=== PATIENT | female | born 1970 | race Caucasian/White ===

== ENCOUNTER 2018-04-24 06:42 | Outpatient (CLI) | payer BC ==
[~2018-04-24] VITALS: Ht 157.5 cm; Wt 55.3 kg
== END 2018-04-24 13:17 | disposition home or self-care (01) ==
LOC: PREOP 06:42
PROVIDERS: ATTEND Surgery
DX: Z01.818 Encounter for other preprocedural examination (principal)

== ENCOUNTER 2018-04-26 07:40 | Day surgery (SDC) | payer BC ==
[~2018-04-26] VITALS: Ht 157.5 cm; Wt 55.3 kg
[2018-04-26 08:00] VITALS: BP 111/43
[2018-04-26] MEDS ORDERED: ceFAZolin 2 GM IV Premixed 50 ML ONE (08:19)
[2018-04-26] MEDS ORDERED: LIDOCAINE/EPI 1%-1:200,000 (XYLOCAINE) 10 ML VIAL ONE (08:35)
[2018-04-26] MEDS ORDERED: 0.9% SODIUM CHLORIDE PF INJ 20 ML VIAL ONE (08:36)
[2018-04-26] MEDS ORDERED: fentaNYL INJECTION 100 MCG/2 ML AMP ONE (08:54)
[2018-04-26] MEDS ORDERED: MIDAZOLAM 2 MG/2 ML (VERSED) VIAL ONE (08:54)
[2018-04-26] MEDS ORDERED: PROPOFOL INJECTION 50 ML IV ONE (08:54)
--- NOTE | 2018-04-26 08:56 | Progress Note-Pre Operative ---
Pre-Operative Progress Note H&P Reviewed The H&P was reviewed, patient examined and no changes noted. Time Seen by Provider: 08:54 Date H&P Reviewed: Apr 26, 2018 Time H&P Reviewed: 08:55 Pre-Operative Diagnosis: Venous Insufficiency, Lung CA MATTI HUFF DO Apr 26, 2018 08:56
[2018-04-26] MEDS ORDERED: ceFAZolin 2 GM IV Premixed 50 ML IV ONE (09:00)
[2018-04-26] MEDS ORDERED: LACTATED RINGERS 1,000 ML IV PRN (09:01)
[2018-04-26] MEDS: HEParin (CENTRAL IV FLUSH) 500 UNIT/5 ML SYR ONE ×2 (09:22→09:26)
--- NOTE | 2018-04-26 09:40 | Progress Note-Post Operative ---
Post-Operative Progess Note Surgeon (s)/Gambling Cashier (s) Surgeon MATTI HUFF DO Gambling Cashier: none Pre-Operative Diagnosis Venous Insufficiency, Lung CA Post-Operative Diagnosis same Procedure & Operative Findings Date of Procedure 04/26/18 Procedure Performed/Findings Bayron-cath insertion, R ACW, R SC vein Anesthesia Type IV sedation by Anesthesia Estimated Blood Loss Estimated blood loss (mL): scant Specimens/Packing Specimens Removed none MATTI HUFF DO Apr 26, 2018 09:40
[2018-04-26] MEDS ORDERED: ACHD5005 PO (09:41)
--- NOTE | 2018-04-26 09:43 | Discharge Inst-Surgical ---
Discharge Inst-Surgical Depart Medication/Instructions New, Converted or Re-Newed RX: RX Given to Pt/Family Patient Instructions Follow up Appt: Make appointment for 1 week. Instructions: No lifting greater than 30 pounds. No strenuous activity. May shower in 24 hours, no tub bath or soaking. Use incentive spirometer at home as directed. No Smoking Skin/Wound Care: May remove bandages in am. You need to leave the Dermabond on over incision it will fall off on its own. Symptoms to Report: Appetite Changes, Extremity Discoloration, Numbness/Tingling, Swelling Increased , Bleeding Excessive, Eyesight Changes, Pain Increased, Urine Color Change, Constipation(Persistent), Fever over 101 degree F, Pain/Pressure in chest, Urinating Difficulty, Cough Up/Vomit Blood, Heart Beat Irreg/Pounding, Pain/ Pressure in jaw, Vaginal Bleeding Increase, Cramps in feet or legs, Lightheadedness, Pain/Pressure in shoulder, Diarrhea(Persistent), Memory Changes Suddenly, Questions/Concerns, Weight gain consecutive days, Dizziness/ Fainting, Nausea/Vomiting, Shortness of Breath, Weight gain over 2 pounds If questions or concerns contact your physician Or seek help at emergency department. Activity Activity as Tolerated: Yes Activity Instructions: Avoid Stress to Incision Driving Instructions: No Driving/Refer to (while on pain meds) Diet Discharge Diet: No Restrictions Diet After 24 Hours: Clear Liquid if Nauseous If Any Problems/Questions/Issu: Contact Your Physician, Go to Emergency Room Skin/Wound Care Infection Signs and Symptoms: Increased Redness, Foul Odor of Wound, Increased Drainage, Skin Itchy or Has a Rash, Increased Swelling, Temperature Above 101 F Bathing Instructions: Shower Ice Pack: Ice On and Off Site (as needed for pain) MATTI HUFF DO Apr 26, 2018 09:43
[2018-04-26] MEDS ORDERED: ONDANSETRON 4 MG/2 ML (SDV) Z0FRAN IVP PRN (10:00)
[2018-04-26] MEDS ORDERED: morphine INJ 10 MG/ML 1ML (SYR OR VIAL) IVP ONE (10:00)
--- NOTE | 2018-04-26 10:15 | Anesthesia-General Post-Op ---
MAC Patient Condition Mental Status/LOC: Same as Preop Cardiovascular: Satisfactory Nausea/Vomiting: Absent Respiratory: Satisfactory Pain: Controlled Complications: Absent Post Op Complications Complications None Follow Up Care/Instructions Patient Instructions None needed. Anesthesiology Discharge Order Discharge Order Patient is doing well, no complaints, stable vital signs, no apparent adverse anesthesia problems. No complications reported per nursing. OSMANI METCALF CRNA Apr 26, 2018 10:15
[2018-04-26 10:20] VITALS: BP 100/51
[2018-04-26 10:50] VITALS: BP 103/52
[2018-04-26 11:10] VITALS: BP 103/52
[2018-04-26 11:20] VITALS: BP 132/78
--- NOTE | 2018-04-26 12:17 | Diagnostic Imaging Report ---
EXAMINATION: Fluoroscopy. INDICATION: Port-A-Cath insertion. PROCEDURE: Fluoroscopic assistance was provided for Dr. Esposito during his right [place] catheter placement procedure. 5 seconds of fluoroscopy time was utilized. Two spot films of the right thorax were obtained. There is a Port-A-Cath in place with the tip overlying the midportion of the superior vena cava. IMPRESSION: Fluoroscopic assistance was provided for Dr. Esposito. Dictated by: Dictated on workstation # [id number]
--- OUTSIDE RECORDS SUMMARY | 2018-04-26 13:28 | XMS REPORT ---
Author JACOB Foley [facility] Address [address] [place], [place] [id number] Care Team Providers Care Rugby Union Footballer Name Role Phone JACOB ANDRES PCP JACOB ANDRES PreferredProvider Allergies and Adverse Reactions Name Reaction Notes No known drug allergy Plan of Treatment Not available. Medications Active Name Start Date Estimated Completion Date SIG Comments Levaquin 500 mg oral tablet 03/25/2018 04/04/2018 take 1 tablet (500 mg) by oral route once daily for 10 days Medrol (Lance) 4 mg oral tablets,dose pack 03/25/2018 03/30/2018 take as directed for 5 days Symbicort 160-4.5 mcg/actuation inhalation HFA aerosol inhaler 03/25/2018 inhale 2 puffs by inhalation route 2 times per day in the morning and evening promethazine-codeine 6.25-10 mg/5 mL oral syrup 03/25/2018 take 5 milliliters by oral route every 6 hours as needed, not to exceed 30 mL in 24 hours Name Start Date Expiration Date SIG Comments Zithromax Z-Lance 250 mg oral tablet 08/04/2016 08/09/2016 take 2 tablets (500 mg) by oral route once daily for 1 day then 1 tablet (250 mg) by oral route once daily for 4 days Synthroid 100 mcg oral tablet 12/19/2016 06/17/2017 take 1 tablet (100 mcg) by oral route once daily for 90 days Discontinued Name Start Date Discontinued Date SIG Comments promethazine-codeine 6.25-10 mg/5 mL oral syrup 08/04/2016 12/02/2016 take 5 milliliters by oral route every 6 hours as needed, not to exceed 30 mL in 24 hours Problem List Description Status Onset Smoker Active 08/04/2016 Hypothyroidism, acquired Active 08/04/2016 Vital Signs Date Time BP-Sys(mm[Hg] BP-Daysi(mm[Hg]) HR(bpm) RR(rpm) Temp WT HT HC BMI BSA BMI Percentile O2 Sat(%) 03/25/2018 8:42:00 AM 122 mmHg 86 mmHg 70 bpm 18 rpm 98.1 F 125 lbs 62 in 22.8626 kg/m 1.5749 m 97 % 11/30/2016 11:14:00 AM 128 mmHg 70 mmHg 60 bpm 16 rpm 98.4 F 128 lbs 62 in 23.41 kg/m2 1.59 m2 99 % 08/03/2016 1:43:00 PM 118 mmHg 70 mmHg 76 bpm 18 rpm 98 F 129.062 lbs 62 in 23.6056 kg/m 1.6003 m 97 % Social History Name Description Comments Tobacco Unknown if ever smoked Alcohol Unknown Uses seatbelts History of Procedures Date Ordered Description Order Status 08/03/2016 12:00 AM Decadron 8mg Injection Reviewed 08/03/2016 12:00 AM Depo-Medrol 80mg Injection Reviewed 08/03/2016 12:00 AM Rocephin 1 gram Injection Reviewed 08/03/2016 12:00 AM THER/PROPH/DIAG INJ SC/IM Reviewed Results Summary Not available. History Of Immunizations Not available. History of Past Illness Name Date of Onset Comments Smoker 08/04/2016 Hypothyroidism, acquired 08/04/2016 Acute bronchitis, unspecified organism Aug 03 2016 1:44PM Moderate Acute Cough Aug 03 2016 1:44PM Moderate Acute Chest congestion Aug 03 2016 1:44PM Chronic Smoker Aug 03 2016 1:44PM Hypothyroidism, Acquired Stable Aug 03 2016 1:44PM Abrasion, lower leg, anterior, right, initial encounter Nov 30 2016 11:15AM Acute bronchitis, unspecified organism Mar 25 2018 8:44AM Cough present for greater than 3 weeks Mar 25 2018 8:44AM Moderate Allergic dermatitis Unresponsive to treatment Mar 25 2018 8:44AM Smoker Mar 25 2018 8:44AM Hypothyroidism, unspecified type Mar 25 2018 8:44AM Payers Insurance Name Company Name Plan Name Plan Number Policy Number Policy Group Number [id number]A History of Encounters Visit Date Visit Type Provider 03/25/2018 Office visit JACOB SANTORO 11/30/2016 Office visit JACOB SANTORO 08/03/2016 Office visit JACOB SANTORO
--- OUTSIDE RECORDS SUMMARY | 2018-04-26 13:28 | XMS REPORT ---
Author JACOB Foley [facility] Address [address] [place], [place] [phone] Care Team Providers Care Beading Installer Name Role Phone JACOB ANDRES PCP JACOB ANDRES PreferredProvider Allergies and Adverse Reactions Name Reaction Notes No known drug allergy Plan of Treatment Planned Activity Comments Planned Date Planned Time Plan/Goal CT GUIDANCE FOR NEEDLE PLACE;BX,ASP,INJ 04/02/2018 12:00 AM Medications Active Name Start Date Estimated Completion Date SIG Comments Levaquin 500 mg oral tablet 03/25/2018 04/04/2018 take 1 tablet (500 mg) by oral route once daily for 10 days Symbicort 160-4.5 mcg/actuation inhalation HFA aerosol [...] oral route once daily for 90 days Medrol (Lance) 4 mg oral tablets,dose pack 03/25/2018 03/30/2018 take as directed for 5 days Discontinued Name Start Date Discontinued Date [...] HC BMI BSA BMI Percentile O2 Sat(%) 04/02/2018 10:50:00 AM 110 mmHg 70 mmHg 74 bpm 18 rpm 98.2 F 121 lbs 64 in 20.7694 kg/m 1.5743 m 97 % 03/25/2018 8:42:00 AM 122 mmHg 86 mmHg 70 bpm 18 rpm 98.1 F 125 lbs 62 in 22.86 kg/m2 1.57 m2 97 % 11/30/2016 11:14:00 AM 128 mmHg 70 mmHg 60 bpm 16 rpm 98.4 F 128 lbs 62 in 23.4113 kg/m 1.5937 m 99 % 08/03/2016 1:43:00 PM 118 mmHg 70 mmHg 76 bpm 18 rpm 98 F 129.062 lbs 62 in 23.6056 kg/m 1.60 m2 97 % Social History Name Description Comments Tobacco Unknown if ever smoked Alcohol Unknown Uses seatbelts History of Procedures Date Ordered Description Order Status 08/03/2016 12:00 AM Decadron 8mg Injection Reviewed 08/03/2016 12:00 AM Depo-Medrol 80mg Injection Reviewed 08/03/2016 12:00 AM Rocephin 1 gram Injection Reviewed 08/03/2016 12:00 AM THER/PROPH/DIAG INJ SC/IM Reviewed 03/26/2018 12:[address] THORAX W/DYE Returned Results Summary Not available. History Of Immunizations [...] Hypothyroidism, unspecified type Mar 25 2018 8:44AM Abnormal chest x-ray Mar 26 2018 9:24AM Lung mass Apr 02 2018 11:12AM Payers Insurance Name Company Name Plan Name Plan Number Policy Number Policy Group Number Start Date [facility] [id number] N/A History of Encounters Visit Date Visit Type Provider 04/02/2018 Office visit JACOB SANTORO 03/25/2018 Office visit JACOB SANTORO 11/30/2016 Office visit JACOB SANTORO 08/03/2016 Office visit JACOB SANTORO
--- OUTSIDE RECORDS SUMMARY | 2018-04-26 13:28 | XMS REPORT ---
Author Author JACOB ANDRES [facility] Address [address] [place], [place] [phone] Care Team Providers Care Call Center Representative Name Role Phone JACOB ANDRES PCP Unavailable Allergies and Adverse Reactions Not available. Plan of Treatment Not available. Medications Active Name Start Date Estimated Completion Date SIG Comments Zithromax Z-Lance 250 mg oral tablet 08/04/2016 08/09/2016 take 2 tablets (500 mg) by oral route once daily for 1 day then 1 tablet (250 mg) by oral route once daily for 4 days promethazine-codeine 6.25-10 mg/5 mL oral syrup 08/04/2016 take 5 milliliters by oral route every 6 hours as needed, not to exceed 30 mL in 24 hours Problem List Description Status Onset Smoker Active 08/04/2016 Vital Signs Date Time BP-Sys(mm[Hg] BP-Daysi(mm[Hg]) HR(bpm) RR(rpm) Temp WT HT HC BMI BSA BMI Percentile O2 Sat(%) 08/03/2016 1:43:00 PM 118 mmHg 70 mmHg 76 bpm 18 rpm 98 F 129.062 lbs 62 in 23.61 kg/m2 1.60 m2 97 % Social History Not available. History of Procedures Date Ordered Description Order Status 08/03/2016 12:00 AM Decadron 8mg Injection Reviewed 08/03/2016 12:00 AM Depo-Medrol 80mg Injection Reviewed 08/03/2016 12:00 AM Rocephin 1 gram Injection Reviewed 08/03/2016 12:00 AM THER/PROPH/DIAG INJ SC/IM Reviewed Results Summary Not available. History Of Immunizations Not available. History of Past Illness Name Date of Onset Comments Smoker 08/04/2016 Acute bronchitis, unspecified organism Aug 03 2016 1:44PM Moderate Acute Cough Aug 03 2016 1:44PM Moderate Acute Chest congestion Aug 03 2016 1:44PM Chronic Smoker Aug 03 2016 1:44PM Payers Insurance Name Company Name Plan Name Plan Number Policy Number Policy Group Number [id number] N/A History of Encounters Visit Date Visit Type Provider 08/03/2016 Office visit JACOB SANTORO
--- OUTSIDE RECORDS SUMMARY | 2018-04-26 13:28 | XMS REPORT ---
Author JACOB Foley [facility] Address [address] [place], [place] [phone] Care Team Providers Care Clockmaker Name Role Phone JACOB ANDRES PCP JACOB ANDRES PreferredProvider Allergies and Adverse Reactions Name Reaction Notes No known drug allergy Plan of Treatment Not available. Medications Active Name Start Date Estimated Completion Date SIG Comments Symbicort 160-4.5 mcg/actuation inhalation HFA aerosol inhaler 03/25/2018 inhale 2 puffs by inhalation route 2 times per day in the morning and evening promethazine-codeine 6.25-10 mg/5 mL oral syrup 03/25/2018 take 5 milliliters by oral route every 6 hours as needed, not to exceed 30 mL in 24 hours Chantix Starting Month Box 0.5 mg (11)- 1 mg (42) oral tablets,dose pack 2017 take as directed Name Start Date Expiration Date SIG Comments Zithromax Z-Lance 250 mg oral tablet 08/04/2016 08/09/2016 take 2 tablets (500 mg) by oral route once daily for 1 day then 1 tablet (250 mg) by oral route once daily for 4 days Synthroid 100 mcg oral tablet 12/19/2016 06/17/2017 take 1 tablet (100 mcg) by oral route once daily for 90 days Levaquin 500 mg oral tablet 03/25/2018 04/04/2018 [...] Smoker Active 08/04/2016 Hypothyroidism, acquired Active 08/04/2016 Non-small cell carcinoma of lung Active Vital Signs Date Time BP-Sys(mm[Hg] BP-Daysi(mm[Hg]) HR(bpm) [...] 03/26/2018 12:[address] THORAX W/DYE Returned 04/02/2018 12:[address] SCAN FOR NEEDLE BIOPSY Returned Results Summary Not available. History Of Immunizations Not available. History of Past Illness Name Date of Onset Comments Smoker 08/04/2016 Hypothyroidism, acquired 08/04/2016 Non-small cell carcinoma of lung Acute bronchitis, unspecified organism Aug 03 2016 [...] 9:24AM Lung mass Apr 02 2018 11:12AM Abnormal CT of the chest Apr 02 2018 10:53AM Cough in adult patient Apr 02 2018 10:53AM Smoker Apr 02 2018 10:53AM Payers Insurance Name Company Name Plan Name Plan Number Policy Number Policy Group Number [id number]/A History of Encounters Visit Date Visit Type Provider 04/02/2018 Office visit JACOB SANTORO 03/25/2018 Office visit JACOB SANTORO 11/30/2016 Office visit JACOB SANTORO 08/03/2016 Office visit JACOB SANTORO
--- OUTSIDE RECORDS SUMMARY | 2018-04-26 13:28 | XMS REPORT ---
Author JACOB Foley [facility] Address [address] [place], [place] [phone] Care Team Providers Care Diagnostic Technologist Name Role Phone JACOB ANDRES PCP JACOB ANDRES PreferredProvider Allergies and Adverse Reactions Name Reaction Notes No known drug allergy Plan of Treatment Planned Activity Comments Planned Date Planned Time Plan/Goal Computed tomography of chest with contrast 03/26/2018 12:00 AM Medications Active Name Start Date [...] Abnormal chest x-ray Mar 26 2018 9:24AM Payers Insurance Name Company Name Plan Name Plan Number Policy Number Policy Group Number Start Date [facility] [id number] N/A History of Encounters Visit Date Visit Type Provider 03/25/2018 Office visit JACOB SANTORO 11/30/2016 Office visit JACOB SANTORO 08/03/2016 Office visit JACOB SANTORO
--- OUTSIDE RECORDS SUMMARY | 2018-04-26 13:29 | XMS REPORT ---
Author Author JACOB ANDRES [facility] Address [address] [place], [place] [address] Care Team Providers Care Rolfer Name Role Phone JACOB ANDRES PCP Unavailable [...] Policy Number Policy Group Number [id number] N/A History of Encounters Visit Date Visit Type Provider 08/03/2016 Office visit JACOB SANTORO
--- OUTSIDE RECORDS SUMMARY | 2018-04-26 13:29 | XMS REPORT ---
Author JACOB Foley [facility] Address [address] [place], [place] [phone] Care Team Providers Care Scouts Name Role Phone JACOB ANDRES PCP Unavailable [...] to exceed 30 mL in 24 hours Synthroid 100 mcg oral tablet 08/03/2016 09/02/2016 take 1 tablet (100 mcg) by oral route once daily for 30 days Problem List Description Status Onset Smoker Active 08/04/2016 Hypothyroidism, Acquired Active 08/04/2016 Vital Signs Date Time BP-Sys(mm[Hg] [...] Date of Onset Comments Smoker 08/04/2016 Hypothyroidism, Acquired 08/04/2016 Acute bronchitis, unspecified organism Aug 03 2016 1:44PM Moderate Acute Cough Aug 03 2016 1:44PM Moderate Acute Chest congestion Aug 03 2016 1:44PM Chronic Smoker Aug 03 2016 1:44PM Hypothyroidism, Acquired Stable Aug 03 2016 1:44PM Payers Insurance Name Company Name Plan Name Plan Number Policy Number Policy Group Number Start Date [facility] [id number] N/A History of Encounters Visit Date Visit Type Provider 08/03/2016 Office visit JACOB SANTORO
--- OUTSIDE RECORDS SUMMARY | 2018-04-26 13:29 | XMS REPORT | Continuity of Care Document ---
Author Author [facility] Organization [facility] Address Unknown Phone Unavailable Allergies Active Description Code Type Severity Reaction Onset Reported/Identified Relationship to Patient Clinical Status Yes No Known Drug Allergies [id number] N/A N/A Yes No Known Drug Allergies [id number] Drug Allergy Unknown N/A 04/24/2018 Medications There is no data. Problems There is no data. Procedures There is no data. Results Test Result Range Urine beta human chorionic gonadotropin (hCG) measurement - 04/26/18 08:30 Urine beta human chorionic gonadotropin (hCG) measurement NEGATIVE NEGATIVE Encounters ACCT No. Visit Date/Time Discharge Status Pt. Type Provider Facility Loc./Unit Complaint [id number] 04/02/2018 11:32:16 04/02/2018 23:59:59 [facility] Outpatient JACOB ANDRES [id number] 03/25/2018 09:36:05 03/25/2018 23:59:59 [facility] Outpatient JACOB ANDRES [id number] 12/05/2016 07:57:01 12/05/2016 23:59:59 [facility] Outpatient JACOB ANDRES [id number] 11/30/2016 08:46:33 11/30/2016 23:59:59 [facility] Outpatient JACOB ANDRES [id number] 08/07/2016 12:36:45 08/07/2016 23:59:59 [facility] Outpatient JACOB ANDRES [id number] 04/15/2018 07:38:35 Document Registration [id number] 04/10/2018 08:37:23 Document Registration [id number] 04/09/2018 16:54:15 Document Registration [id number] 04/02/2018 10:59:13 Document Registration [id number] 03/26/2018 09:18:19 Document Registration [id number] 03/25/2018 09:50:50 Document Registration [id number] 04/24/2018 06:42:00 04/24/2018 13:17:00 DIS Outpatient MATTI HUFF DO [facility] PREOP PORT PLACEMENT [id number] 04/26/2018 09:30:00 PEN Preadmit MATTI HUFF DO [facility] LUNG CARCINOMA [id number] 04/24/2018 10:07:00 ACT Outpatient ANAND TRAYLOR, FLAVIA [facility] ONC
--- OUTSIDE RECORDS SUMMARY | 2018-04-26 13:29 | XMS REPORT ---
Author JACOB Foley [facility] Address [address] [place], [place] [address] Care Team Providers Care Finisher Cold Rolling Name Role Phone JACOB ANDRES PCP Unavailable JACOB ANDRES PreferredProvider Unavailable Allergies and Adverse Reactions Name Reaction Notes No known drug allergy Plan of Treatment Not available. Medications Name Start Date Expiration Date SIG Comments Zithromax Z-Lance 250 mg oral tablet 08/04/2016 08/09/2016 take 2 tablets (500 mg) by oral route once daily for 1 day then 1 tablet (250 mg) by oral route once daily for 4 days Synthroid 100 mcg oral tablet 08/03/2016 09/02/2016 take 1 tablet (100 mcg) by oral route once daily for 30 days Discontinued Name Start Date Discontinued Date [...] HC BMI BSA BMI Percentile O2 Sat(%) 11/30/2016 11:14:00 AM 128 mmHg 70 mmHg [...] AM THER/PROPH/DIAG INJ SC/IM Reviewed Results Summary Date and Description Results 12/06/2016 9:00 AM GLUCOSE 113.0 mg/dLSODIUM 139.0 mmol/LPOTASSIUM 3.70 mmol/ LCHLORIDE 106.0 mmol/LCO2 25.0 mmol/LBUN 9.0 mg/dLCREATININE 0.80 mg/dLSGOT/AST 17.0 IU/LSGPT/ALT 7.0 IU/LALK PHOS 45.0 IU/LTOTAL PROTEIN 7.60 g/dLALBUMIN 4.20 g/dLTOTAL BILI 0.30 mg/dLCALCIUM 9.70 mg/dLAGE 46 GFR NonAA 77 GFR AA 93 eGFR > 60 mL/min/1.73meGFR AA* >60 TRIGLYCERIDES 107.0 mg/dLCHOLESTEROL 238.0 mg/ dLHDL 40.0 mg/dLTOT CHOL/HDL 6.0 LDL (CALC) 177.0 mg/dLWBC 8.0 RBC 4.28 HGB 13.10 g/dLHCT 39.50 %MCV 92.0 fLMCH 30.60 pgMCHC 33.20 g/dLRDW SD 43 RDW CV 12.70 %MPV 8.20 fLPLT 378 NRBC# 0.00 NRBC% 0.0 FREE T4 1.22 TSH 1.020 uIU/mL History Of Immunizations Not available. History of [...] right, initial encounter Nov 30 2016 11:15AM Payers Insurance Name Company Name Plan Name Plan Number Policy Number Policy Group Number [id number] N/A History of Encounters Visit Date Visit Type Provider 11/30/2016 Office visit JACOB SANTORO 08/03/2016 Office visit JACOB SANTORO
--- OUTSIDE RECORDS SUMMARY | 2018-04-26 13:29 | XMS REPORT ---
Author JACOB Foley [facility] Address [address] [place], [place] [address] Care Team Providers Care African Studies Professor Name Role Phone JACOB ANDRES PCP Unavailable [...] Policy Number Policy Group Number [facility] [id number] N/A History of Encounters Visit Date Visit Type Provider 11/30/2016 Office visit JACOB SANTORO 08/03/2016 Office visit JACOB SANTORO
--- OUTSIDE RECORDS SUMMARY | 2018-04-26 13:29 | XMS REPORT ---
Author JACOB Foley [facility] Address [address] [place], [place] [address] Care Team Providers Care Laboratory Administrative Director Name Role Phone JACOB ANDRES PCP Unavailable [...] Policy Number Policy Group Number Start Date [facility] [id number] N/A History of Encounters Visit Date Visit Type Provider 11/30/2016 Office visit JACOB SANTORO 08/03/2016 Office visit JACOB SANTORO
--- NOTE | 2018-04-26 15:23 | OPERATIVE REPORT ---
DATE OF SERVICE: PREOPERATIVE DIAGNOSES: 1. Venous insufficiency. 2. Lung cancer. POSTOPERATIVE DIAGNOSES: 1. Venous insufficiency. 2. Lung cancer PROCEDURE: Insertion of Port-A-Cath, right anterior chest wall and right subclavian vein. SURGEON: Rhett Esposito DO. PACKAGE DYER: None. ANESTHESIA: IV sedation by the anesthesiologist. BLOOD LOSS: Scant. FLUIDS: Per anesthesia. SPECIMENS: None. POSTOPERATIVE CONDITION: Stable. INDICATION FOR PROCEDURE: The patient is a 47-year-old female, who unfortunately has lung cancer and needs a port for chemotherapy and long-term access. FINDINGS: The patient had a port placed in the right anterior chest wall and right subclavian vein without difficulty. PROCEDURE NOTE: After informed consent was obtained, the patient was brought to the operating room and placed on the table in supine position. She was sterilely prepped and draped in a normal fashion, slightly placed in reverse Trendelenburg and then using an 18-gauge finder needle advanced the needle under the clavicle, cannulated the subclavian vein on the second attempt. Good flash of blood, removed the syringe, placed a guidewire down the needle using a Seldinger technique, checked with fluoroscopy, it was in good position, removed this needle and then made a stab incision along the wire with a #11 blade. Then, used the #11 blade to make a small incision in the right anterior chest wall to place the port making the incision down through the skin into the subcutaneous tissue, then deepened down through the subcutaneous tissue with Bovie electrocautery controlling the bleeding and then also using the blunt dissection to create a pocket, sutured it with 3-0 Prolene suture down to the anterior chest wall and then over the guidewire placed the dilator using the Seldinger technique, it went in easily, checked with fluoroscopy and it was in good position, tunneled the catheter from the stab incision into the pocket created for the port and then removed the inner portion of the dilator sheath as well as the guidewire and then placed the catheter down the dilator sheath using the Seldinger technique, checked with fluoroscopy, it was in good position and then removed the inner guidewire for the catheter, cut the catheter and then attached it to the port and then attached the locking mechanism and then easily aspirated and flushed with normal saline and aspirated and flushed with heparin. This port was then sutured down to the chest wall with a 3-0 Prolene previously placed, checked with fluoroscopy. At the end of case, there were no kinks. Good port position and again easily able to flush. At this point, I then closed the incision on the anterior chest wall closing the subcutaneous tissue with 3-0 Vicryl single interrupted stitch. I then closed the skin with 4-0 undyed Monocryl with three interrupted subcuticular stitches and then closed the small stab incision with 3-0 undyed Monocryl subcuticular stitches. Area was cleaned and dried, Dermabond placed as well as Band-Aids and the patient was then transferred to the recovery room in stable condition. Sponge, instrument and needle count correct at the end of the case. Job ID: [id number] DocumentID: [id number] Dictated Date: 04/26/2018 11:35:00 Lime Vat Tender Date: 04/26/2018 15:23:08 Dictated By: DO CRYSTAL SANDERS
== END 2018-04-26 11:20 | disposition home or self-care (01) ==
LOC: SDC 07:40
PROVIDERS: ATTEND Surgery
DX: I87.2 Venous insufficiency (chronic) (peripheral) (principal); C34.90 Malignant neoplasm of unspecified part of unspecified bronchus or lung; F17.210 Nicotine dependence, cigarettes, uncomplicated
CPT/HCPCS: 84703; 87081

== ENCOUNTER → 2018-05-07 | Outpatient (CLI) | payer BC ==
[~2018-05-07] MED LIST: ACHD5005 PO
== END ==
LOC: LAB 14:24
PROVIDERS: ATTEND Surgery
DX: R30.0 Dysuria (principal)
CPT/HCPCS: 87077; 87088; 87186

== ENCOUNTER → 2018-07-17 | Outpatient (CLI) | payer BC ==
[~2018-07-17] MED LIST changes: +IOHEXOL 350 MG/ML 100 ML (OMNIPAQUE 350) VIAL IV ONE; +NS 100 ML (IVPB) BAG IV ONE; +RECEIVED CONTRAST (Hold Metformin) IV SCH
--- NOTE | 2018-07-17 12:04 | Diagnostic Imaging Report ---
PROCEDURE: CT chest with contrast only. TECHNIQUE: Multiple contiguous axial images were obtained through the chest after administration of intravenous contrast. INDICATION: Lung cancer. FINDINGS: The previous CT chest exam performed at [facility] on 03/27/2018 was reviewed. That study revealed a large 5.4 x 8.5 cm mediastinal mass on the right. On this exam, that mass is much smaller and now measures 2.3 x 3.0 cm. The previous study also identified aorticopulmonary adenopathy with two contiguous nodes. Those nodes had a conglomerate size of approximately 2.0 x 4.7 cm. On this exam, those nodes are again identified and now measure 1.9 x 4.1 cm. The prior study also identified a large pretracheal node measuring 2.3 x 3.3 cm. That node has also diminished in size and is now estimated to be 1.6 x 1.9 cm. There is no parenchymal lung mass identified. There is no sign of failure or pneumonia. There does appear to be some scar formation in the lingula. The heart size is within normal limits and stable when compared to the prior study. The aorta is not abnormally dilated, and there is no sign of a dissection. The pulmonary arteries were not fully opacified, but there is no definite defect to suggest a pulmonary embolus. The thyroid gland appears similar to the prior study. There is a small 3 mm low-density nodule in the right lobe. There is no obvious breast mass. The sections through the upper abdomen fail to show any sign of an acute abnormality. The bone windows are unremarkable for a fracture or for a destructive lesion. IMPRESSION: 1. The appearance of the chest has improved considerably since the prior exam as the bulky mass in the right superior mediastinum has decreased in size significantly. The aorticopulmonary window nodes and the pretracheal node also measure less than on the prior exam. 2. There is no parenchymal lung mass identified, and there is no acute cardiopulmonary abnormality evident. Dictated by: Dictated on workstation # [id number]
== END ==
LOC: RAD 10:38
PROVIDERS: ATTEND Internal Medicine Hematology & Oncology
DX: C34.90 Malignant neoplasm of unspecified part of unspecified bronchus or lung (principal)
CPT/HCPCS: 71260

== ENCOUNTER 2018-10-16 14:37 | Outpatient (RCR) | payer BC ==
[2018-07-24 13:32] LABS: BASOPHILS % (AUTO) 1 % (0-10); EOSINOPHILS # (AUTO) 0.1 10^3/uL (0.0-0.3); EOSINOPHILS % (AUTO) 1 % (0-10); HEMATOCRIT 35 % (35-52); HEMOGLOBIN 11.3 G/DL (11.5-16.0); LYMPHOCYTES % (AUTO) 15 % (12-44); MEAN CORPUSCULAR HEMOGLOBIN 31 PG (25-34); MEAN CORPUSCULAR HGB CONC 33 G/DL (32-36); MEAN CORPUSCULAR VOLUME 95 FL (80-99); MEAN PLATELET VOLUME 7.8 FL (7.4-10.4); MONOCYTES # (AUTO) 0.8 X 10^3 (0.0-1.0); MONOCYTES % (AUTO) 13 % (0-12); NEUTROPHILS # (AUTO) 4.4 X 10^3 (1.8-7.8); NEUTROPHILS % (AUTO) 71 % (42-75); PLATELET COUNT 376 10^3/uL (130-400); WHITE BLOOD COUNT 6.2 10^3/uL (4.3-11.0)
[2018-07-24 13:54] LABS: ALANINE AMINOTRANSFERASE < 6 U/L (0-55); ALKALINE PHOSPHATASE 50 U/L (40-136); BILIRUBIN,TOTAL 0.3 MG/DL (0.1-1.0); BUN/CREATININE RATIO 6; CALCIUM 9.6 MG/DL (8.5-10.1); CARBON DIOXIDE 26 MMOL/L (21-32); CHLORIDE 107 MMOL/L (98-107); CREATININE SERUM 0.67 MG/DL (0.60-1.30); GFR ESTIMATED > 60; GLUCOSE 144 MG/DL (70-105); POTASSIUM 3.7 MMOL/L (3.6-5.0); SODIUM 143 MMOL/L (135-145); TOTAL PROTEIN 7.2 GM/DL (6.4-8.2)
[2018-08-07 11:40] LABS: BASOPHILS % (AUTO) 1 % (0-10); EOSINOPHILS # (AUTO) 0.1 10^3/uL (0.0-0.3); EOSINOPHILS % (AUTO) 2 % (0-10); HEMATOCRIT 33 % (35-52); HEMOGLOBIN 10.8 G/DL (11.5-16.0); LYMPHOCYTES % (AUTO) 15 % (12-44); MEAN CORPUSCULAR HEMOGLOBIN 32 PG (25-34); MEAN CORPUSCULAR HGB CONC 33 G/DL (32-36); MEAN CORPUSCULAR VOLUME 95 FL (80-99); MONOCYTES # (AUTO) 0.6 X 10^3 (0.0-1.0); MONOCYTES % (AUTO) 10 % (0-12); NEUTROPHILS # (AUTO) 4.6 X 10^3 (1.8-7.8); NEUTROPHILS % (AUTO) 72 % (42-75); PLATELET COUNT 332 10^3/uL (130-400); RED CELL DISTRIBUTION WIDTH 13.9 % (10.0-14.5); WHITE BLOOD COUNT 6.4 10^3/uL (4.3-11.0)
[2018-08-07 12:01] LABS: ALANINE AMINOTRANSFERASE < 6 U/L (0-55); ALBUMIN 3.8 GM/DL (3.2-4.5); ALKALINE PHOSPHATASE 42 U/L (40-136); BILIRUBIN,TOTAL 0.3 MG/DL (0.1-1.0); BUN/CREATININE RATIO 11; CALCIUM 9.2 MG/DL (8.5-10.1); CARBON DIOXIDE 28 MMOL/L (21-32); CHLORIDE 106 MMOL/L (98-107); CREATININE SERUM 0.57 MG/DL (0.60-1.30); GFR ESTIMATED > 60; GLUCOSE 101 MG/DL (70-105); POTASSIUM 3.7 MMOL/L (3.6-5.0); SODIUM 140 MMOL/L (135-145); TOTAL PROTEIN 6.8 GM/DL (6.4-8.2)
[2018-08-21 13:12] LABS: BASOPHILS # (AUTO) 0.1 10^3/uL (0.0-0.1); BASOPHILS % (AUTO) 1 % (0-10); EOSINOPHILS # (AUTO) 0.1 10^3/uL (0.0-0.3); EOSINOPHILS % (AUTO) 1 % (0-10); HEMATOCRIT 34 % (35-52); HEMOGLOBIN 11.4 G/DL (11.5-16.0); LYMPHOCYTES % (AUTO) 15 % (12-44); MEAN CORPUSCULAR HEMOGLOBIN 32 PG (25-34); MEAN CORPUSCULAR HGB CONC 33 G/DL (32-36); MEAN CORPUSCULAR VOLUME 95 FL (80-99); MONOCYTES # (AUTO) 0.8 X 10^3 (0.0-1.0); MONOCYTES % (AUTO) 12 % (0-12); NEUTROPHILS # (AUTO) 4.6 X 10^3 (1.8-7.8); NEUTROPHILS % (AUTO) 71 % (42-75); PLATELET COUNT 297 10^3/uL (130-400); RED CELL DISTRIBUTION WIDTH 12.7 % (10.0-14.5); WHITE BLOOD COUNT 6.4 10^3/uL (4.3-11.0)
[2018-08-21 13:32] LABS: ALANINE AMINOTRANSFERASE < 6 U/L (0-55); ALBUMIN 4.1 GM/DL (3.2-4.5); ALKALINE PHOSPHATASE 46 U/L (40-136); BILIRUBIN,TOTAL 0.4 MG/DL (0.1-1.0); BUN/CREATININE RATIO 9; CALCIUM 9.6 MG/DL (8.5-10.1); CARBON DIOXIDE 28 MMOL/L (21-32); CHLORIDE 103 MMOL/L (98-107); CREATININE SERUM 0.65 MG/DL (0.60-1.30); GFR ESTIMATED > 60; GLUCOSE 161 MG/DL (70-105); SODIUM 139 MMOL/L (135-145)
[2018-09-18 13:28] LABS: BASOPHILS # (AUTO) 0.1 10^3/uL (0.0-0.1); BASOPHILS % (AUTO) 1 % (0-10); EOSINOPHILS # (AUTO) 0.1 10^3/uL (0.0-0.3); EOSINOPHILS % (AUTO) 2 % (0-10); HEMATOCRIT 35 % (35-52); HEMOGLOBIN 11.3 G/DL (11.5-16.0); LYMPHOCYTES # (AUTO) 1.1 X 10^3 (1.0-4.0); LYMPHOCYTES % (AUTO) 20 % (12-44); MEAN CORPUSCULAR HEMOGLOBIN 31 PG (25-34); MEAN CORPUSCULAR HGB CONC 33 G/DL (32-36); MEAN CORPUSCULAR VOLUME 94 FL (80-99); MEAN PLATELET VOLUME 7.8 FL (7.4-10.4); MONOCYTES # (AUTO) 0.6 X 10^3 (0.0-1.0); MONOCYTES % (AUTO) 11 % (0-12); NEUTROPHILS # (AUTO) 3.5 X 10^3 (1.8-7.8); NEUTROPHILS % (AUTO) 66 % (42-75); PLATELET COUNT 326 10^3/uL (130-400); WHITE BLOOD COUNT 5.3 10^3/uL (4.3-11.0)
[2018-09-18 13:54] LABS: ALANINE AMINOTRANSFERASE 7 U/L (0-55); ALBUMIN 4.2 GM/DL (3.2-4.5); ALKALINE PHOSPHATASE 45 U/L (40-136); BILIRUBIN,TOTAL 0.3 MG/DL (0.1-1.0); BUN/CREATININE RATIO 9; CALCIUM 9.8 MG/DL (8.5-10.1); CARBON DIOXIDE 28 MMOL/L (21-32); CHLORIDE 102 MMOL/L (98-107); CREATININE SERUM 0.64 MG/DL (0.60-1.30); GFR ESTIMATED > 60; GLUCOSE 133 MG/DL (70-105); SODIUM 138 MMOL/L (135-145); TOTAL PROTEIN 6.8 GM/DL (6.4-8.2)
[~2018-10-16] VITALS: Ht 157.5 cm; Wt 54.9 kg
[2018-10-16 13:00] LABS: BASOPHILS # (AUTO) 0.1 10^3/uL (0.0-0.1); BASOPHILS % (AUTO) 1 % (0-10); EOSINOPHILS # (AUTO) 0.1 10^3/uL (0.0-0.3); EOSINOPHILS % (AUTO) 2 % (0-10); HEMATOCRIT 37 % (35-52); HEMOGLOBIN 12.6 G/DL (11.5-16.0); LYMPHOCYTES # (AUTO) 1.1 X 10^3 (1.0-4.0); LYMPHOCYTES % (AUTO) 18 % (12-44); MEAN CORPUSCULAR HEMOGLOBIN 32 PG (25-34); MEAN CORPUSCULAR HGB CONC 34 G/DL (32-36); MEAN CORPUSCULAR VOLUME 93 FL (80-99); MEAN PLATELET VOLUME 7.8 FL (7.4-10.4); MONOCYTES # (AUTO) 0.5 X 10^3 (0.0-1.0); MONOCYTES % (AUTO) 8 % (0-12); NEUTROPHILS # (AUTO) 4.4 X 10^3 (1.8-7.8); NEUTROPHILS % (AUTO) 72 % (42-75); PLATELET COUNT 336 10^3/uL (130-400); RED CELL DISTRIBUTION WIDTH 12.9 % (10.0-14.5); WHITE BLOOD COUNT 6.1 10^3/uL (4.3-11.0)
[2018-10-16 13:21] LABS: ALANINE AMINOTRANSFERASE 6 U/L (0-55); ALBUMIN 4.3 GM/DL (3.2-4.5); ALKALINE PHOSPHATASE 62 U/L (40-136); BILIRUBIN,TOTAL 0.2 MG/DL (0.1-1.0); BUN/CREATININE RATIO 11; CALCIUM 9.8 MG/DL (8.5-10.1); CARBON DIOXIDE 26 MMOL/L (21-32); CHLORIDE 102 MMOL/L (98-107); CREATININE SERUM 0.75 MG/DL (0.60-1.30); GFR ESTIMATED > 60; GLUCOSE 93 MG/DL (70-105); POTASSIUM 3.8 MMOL/L (3.6-5.0); SODIUM 139 MMOL/L (135-145); TOTAL PROTEIN 7.3 GM/DL (6.4-8.2)
[~2018-10-16 14:37] MED LIST changes: +DURVALUMAB 500 MG in NS (IVPB) CANCER CENTER 100 ML IV SCH; -IOHEXOL 350 MG/ML 100 ML (OMNIPAQUE 350) VIAL IV ONE; -NS 100 ML (IVPB) BAG IV ONE; +NS IV 1000 ML (CANCER CTR) IV SCH; +NS IV 500 ML (CANCER CENTER) 500 ML ONE; -RECEIVED CONTRAST (Hold Metformin) IV SCH
== END 2018-10-22 | disposition home or self-care (01) ==
LOC: ONC 14:37
PROVIDERS: ATTEND Internal Medicine Hematology & Oncology
DX: Z51.11 Encounter for antineoplastic chemotherapy (principal); C34.11 Malignant neoplasm of upper lobe, right bronchus or lung; C77.1 Secondary and unspecified malignant neoplasm of intrathoracic lymph nodes; E03.9 Hypothyroidism, unspecified; F17.210 Nicotine dependence, cigarettes, uncomplicated; Z79.899 Other long term (current) drug therapy
CPT/HCPCS: 36415; 36591; 80053; 84443; 85025; 96413

== ENCOUNTER → 2018-12-25 | Outpatient (CLI) | payer BC ==
[~2018-12-25] MED LIST changes: +BARIUM SUSPENSION 2.1% (VANILLA SILQ) 450 ML PO ONE; -DURVALUMAB 500 MG in NS (IVPB) CANCER CENTER 100 ML IV SCH; +HOLD METFORMIN - RECEIVED CONTRAST 20 ML VIAL IV SCH; +IOHEXOL 350 MG/ML 100 ML (OMNIPAQUE 350) VIAL IV ONE; +NS 100 ML (IVPB) BAG IV ONE; -NS IV 1000 ML (CANCER CTR) IV SCH; -NS IV 500 ML (CANCER CENTER) 500 ML ONE
--- NOTE | 2018-12-25 11:54 | Diagnostic Imaging Report ---
PROCEDURE: CT chest, abdomen, and pelvis with contrast. TECHNIQUE: Multiple contiguous axial images were obtained through the chest, abdomen, and pelvis after the administration of intravenous contrast. Auto Exposure Controls were utilized during the CT exam to meet ALARA standards for radiation dose reduction. INDICATION: Lung cancer. The previous CT chest exam performed on 07/17/2018 noted a 2.3 x 3.0 cm mass in the right suprahilar region. That mass has decreased in size and now measures 1.3 x 2.2 cm. The prior study also identified bulky adenopathy in the left aorticopulmonary window. There are 2 contiguous nodes with a conglomerate size of 2.0 x 4.1 cm. On this study there is only a small 0.5 x 1.0 cm lindsey density in this area. The 1.6 x 1.9 cm pretracheal node noted previously has also decreased in size and now measures 1.0 x 1.3 cm However, in the interval since the prior study, a 3.2 x 3.6 cm mass with 3 areas of cavitation has developed along the posterior aspect of the right upper lobe. This line should be considered neoplastic until proven otherwise. The 4.3 mm parenchymal nodule in the right apex seen previously is also slightly larger and is now estimated be 4.8 mm. No other parenchymal lung mass is identified. The heart size is stable when compared to the prior exam. The aorta and the pulmonary arteries are unchanged when compare to the previous study. There is no sign of failure, pneumonia or pleural effusion to indicate an acute abnormality. The thyroid gland is unremarkable. There is no obvious breast mass. The right-sided Port-A-Cath remains in good position with the tip near the cavoatrial junction. The sections to the abdomen and pelvis shows the liver is homogeneous and not enlarged. The spleen, pancreas, adrenals, kidneys, gallbladder, aorta and inferior vena cava are unremarkable for an acute abnormality. The stomach is partially filled with oral contrast and gas and difficult to assess. There is no pelvic mass or free fluid collection evident. The uterus and urinary bladder are grossly unremarkable. The cecum extends low into the pelvis on the right and the appendix is difficult to visualize. There is a small tubular gas-filled structure low in the pelvis just to the left of midline. This may resent the appendix. There is diverticulosis of the sigmoid and descending colon but there is no sign of acute diverticulitis. The bone windows show no evidence for fracture or for destructive lesion. IMPRESSION: 1. There are mixed results. The mass in the right suprahilar region has diminished in size and the bulky adenopathy in the aorticopulmonary window has essentially resolved. However a new mass with three areas of cavitation has developed on the posterior aspect of the right upper lung. This finding should be considered neoplastic until proven otherwise. 2. There is no other evidence for neoplastic disease. 3. There is no acute abnormality of the chest, abdomen or pelvis. Dictated by: Dictated on workstation # [id number]
== END ==
LOC: RAD 09:49
PROVIDERS: ATTEND Internal Medicine Hematology & Oncology
DX: C34.90 Malignant neoplasm of unspecified part of unspecified bronchus or lung (principal); Z95.828 Presence of other vascular implants and grafts
CPT/HCPCS: 71260; 74177

== ENCOUNTER → 2018-12-31 | Outpatient (CLI) | payer BC ==
[~2018-12-31] MED LIST changes: -BARIUM SUSPENSION 2.1% (VANILLA SILQ) 450 ML PO ONE; -HOLD METFORMIN - RECEIVED CONTRAST 20 ML VIAL IV SCH; -IOHEXOL 350 MG/ML 100 ML (OMNIPAQUE 350) VIAL IV ONE; -NS 100 ML (IVPB) BAG IV ONE
[2018-12-31 11:05] LABS: BASOPHILS # (AUTO) 0.1 10^3/uL (0.0-0.1); BASOPHILS % (AUTO) 2 % (0-10); EOSINOPHILS # (AUTO) 0.1 10^3/uL (0.0-0.3); EOSINOPHILS % (AUTO) 2 % (0-10); HEMATOCRIT 36 % (35-52); HEMOGLOBIN 11.9 G/DL (11.5-16.0); LYMPHOCYTES # (AUTO) 1.1 X 10^3 (1.0-4.0); LYMPHOCYTES % (AUTO) 19 % (12-44); MEAN CORPUSCULAR HEMOGLOBIN 31 PG (25-34); MEAN CORPUSCULAR HGB CONC 33 G/DL (32-36); MEAN CORPUSCULAR VOLUME 94 FL (80-99); MEAN PLATELET VOLUME 7.8 FL (7.4-10.4); MONOCYTES # (AUTO) 0.7 X 10^3 (0.0-1.0); MONOCYTES % (AUTO) 11 % (0-12); NEUTROPHILS % (AUTO) 66 % (42-75); PLATELET COUNT 343 10^3/uL (130-400); RED CELL DISTRIBUTION WIDTH 14.9 % (10.0-14.5)
[2018-12-31 11:19] LABS: INR 0.9 (0.8-1.4)
== END ==
LOC: LAB 10:47
PROVIDERS: ATTEND Nurse Practitioner Family
DX: C34.11 Malignant neoplasm of upper lobe, right bronchus or lung (principal); R91.8 Other nonspecific abnormal finding of lung field; R05 Cough; R06.89 Other abnormalities of breathing; J30.9 Allergic rhinitis, unspecified; R06.00 Dyspnea, unspecified; Z72.0 Tobacco use
CPT/HCPCS: 36415; 85025; 85610; 85730

== ENCOUNTER 2019-01-01 06:47 | Day surgery (SDC) | payer BC ==
[~2019-01-01] VITALS: Ht 157.5 cm; Wt 55.3 kg
[2019-01-01] MEDS ORDERED: LACTATED RINGERS 1,000 ML IV ONE (06:48)
[2019-01-01] MEDS ORDERED: LIDOCAINE PF 2% 5 ML (XYLOCAINE) VIAL INJ ONE (06:48)
[2019-01-01] MEDS ORDERED: LIDOCAINE PF 1% 2 ML AMP IJ ONE (06:48)
--- OUTSIDE RECORDS SUMMARY | 2019-01-01 06:54 | XMS REPORT ---
Author JACOB Foley [facility] Address [address] [place], [place] [id number] Care Team Providers Care Surg Physician Asst Name Role Phone JACOB ANDRES PCP JACOB ANDRES PreferredProvider Allergies and Adverse Reactions Name Reaction Notes No known drug allergy Plan of Treatment Planned Activity Comments Planned Date Planned Time Plan/Goal Abdomen 2View Decub/Upright- Main 11/25/2018 12:00 AM Medications Active Name Start Date Estimated Completion Date SIG Comments Symbicort 160-4.5 mcg/actuation inhalation HFA aerosol inhaler 03/25/2018 inhale 2 puffs by inhalation route 2 times per day in the morning and evening Chantix Starting Month Box 0.5 mg (11)- 1 mg (42) oral tablets,dose pack 04/04/2018 take as directed omeprazole 40 mg oral capsule,delayed release(DR/EC) 07/25/2018 take 1 capsule (40 mg) by oral route once daily before a meal promethazine-codeine 6.25-10 mg/5 mL oral syrup 10/29/2018 take 5 milliliters by oral route every [...] 03/30/2018 take as directed for 5 days Levaquin 500 mg oral tablet 06/13/2018 06/23/2018 take 1 tablet (500 mg) by oral route once daily for 10 days doxycycline hyclate 100 mg oral capsule 07/12/2018 08/26/2018 take 1 capsule (100 mg) by oral route 2 times per day for 15 days Discontinued Name Start Date Discontinued Date [...] HC BMI BSA BMI Percentile O2 Sat(%) 07/12/2018 8:46:00 AM 110 mmHg 70 mmHg 80 bpm 18 rpm 98.2 F 130 lbs 63 in 23.0282 kg/m 1.619 m 96 % 06/13/2018 8:37:00 AM 108 mmHg 70 mmHg 117 bpm 20 rpm 98.2 F 128 lbs 63 in 22.67 kg/m2 1.61 m2 98 % 04/02/2018 10:50:00 AM 110 mmHg 70 mmHg 74 bpm 18 rpm 98.2 F 121 lbs 64 in 20.77 kg/m2 1.57 m2 97 % 03/25/2018 8:42:00 AM 122 mmHg [...] AM CT SCAN FOR NEEDLE BIOPSY Returned 06/13/2018 12:00 AM THER/PROPH/DIAG INJ SC/IM Reviewed 06/13/2018 12:00 AM Decadron 8mg Injection Reviewed 07/12/2018 12:00 AM THER/PROPH/DIAG INJ SC/IM Reviewed 07/12/2018 12:00 AM Decadron 8mg Injection Reviewed Results Summary Not available. History Of [...] 2018 10:53AM Smoker Apr 02 2018 10:53AM Acute bronchitis, unspecified organism Jun 13 2018 8:39AM Cough present for greater than 3 weeks Jun 13 2018 8:39AM Moderate Allergic dermatitis Unresponsive to treatment Jun 13 2018 8:39AM Smoker Jun 13 2018 8:39AM Non-small cell carcinoma of lung Jun 13 2018 8:39AM Cough Jul 12 2018 9:21AM Purulent postnasal drainage Jul 12 2018 9:21AM Chest congestion Jul 12 2018 9:21AM Upper respiratory tract infection, unspecified type Jul 12 2018 9:21AM Sinus pressure Jul 12 2018 9:21AM Abdominal pain Nov 25 2018 7:41AM Payers Insurance Name Company Name Plan Name Plan Number Policy Number Policy Group [id number]A History of Encounters Visit Date Visit Type Provider 07/12/2018 Office visit JACOB SANTORO 06/13/2018 Office visit JACOB SANTORO 04/02/2018 Office visit JACOB SANTORO 03/25/2018 Office visit JACOB SANTORO 11/30/2016 Office visit JACOB SANTORO 08/03/2016 Office visit JACOB SANTORO
--- OUTSIDE RECORDS SUMMARY | 2019-01-01 06:54 | XMS REPORT ---
Author JACOB Foley [facility] Address [address] [place], [place] [id number] Care Team Providers Care Upper Extremity Surgeon Name Role Phone JACOB ANDRES PCP JACOB [...] oral tablets,dose pack 04/04/2018 take as directed Levaquin 500 mg oral tablet 06/13/2018 06/23/2018 take 1 tablet (500 mg) by oral route once daily for 10 days promethazine-codeine 6.25-10 mg/5 mL oral syrup 06/13/2018 take 5 milliliters by oral route every [...] HC BMI BSA BMI Percentile O2 Sat(%) 06/13/2018 8:37:00 AM 108 mmHg 70 mmHg 117 bpm 20 rpm 98.2 F 128 lbs 63 in 22.6739 kg/m 1.6065 m 98 % 04/02/2018 10:50:00 AM 110 mmHg [...] 06/13/2018 12:00 AM Decadron 8mg Injection Reviewed Results [...] carcinoma of lung Jun 13 2018 8:39AM Payers Insurance Name Company Name Plan Name Plan Number Policy Number Policy Group Number Start Date [facility] [id number] N/A History of Encounters Visit Date Visit Type Provider 06/13/2018 Office visit JACOB SANTORO 04/02/2018 Office visit JACOB SANTORO 03/25/2018 Office visit JACOB SANTORO 11/30/2016 Office visit JACOB SANTORO 08/03/2016 Office visit JACOB SANTORO
--- OUTSIDE RECORDS SUMMARY | 2019-01-01 06:54 | XMS REPORT ---
Author JACOB Foley [facility] Address [address] [place], [place] [id number] Care Team Providers Care Crm Architect Name Role Phone JACOB ANDRES PCP JACOB [...] oral tablets,dose pack 04/04/2018 take as directed promethazine-codeine 6.25-10 mg/5 mL oral syrup 06/13/2018 take 5 milliliters by oral route every 6 hours as needed, not to exceed 30 mL in 24 hours doxycycline hyclate 100 mg oral capsule 07/12/2018 08/26/2018 take 1 capsule (100 mg) by oral route 2 times per day for 15 days Name Start Date Expiration Date SIG Comments [...] oral route once daily for 10 days Discontinued Name Start Date Discontinued Date [...] 9:21AM Sinus pressure Jul 12 2018 9:21AM Payers Insurance Name Company Name Plan Name Plan Number Policy Number Policy Group Number Start Date [facility] [id number] N/A History of Encounters Visit Date Visit Type Provider 07/12/2018 Office visit JACOB SANTORO 06/13/2018 Office visit JACOB SANTORO 04/02/2018 Office visit JACOB SANTORO 03/25/2018 Office visit JACOB SANTORO 11/30/2016 Office visit JACOB SANTORO 08/03/2016 Office visit JACOB SANTORO
--- OUTSIDE RECORDS SUMMARY | 2019-01-01 06:55 | XMS REPORT | Continuity of Care Document ---
Author Organization Unknown Address Unknown Allergies Active Description Code Type Severity Reaction Onset Reported/Identified Relationship to Patient Clinical Status Yes No Known Drug Allergies [id number] Drug Allergy Unknown N/A 04/24/2018 Medications There is no data. Problems Date Dx Coded Attending Type Code Diagnosis Diagnosed By 04/24/2018 MATTI HUFF DO, Ot Z01.818 ENCOUNTER FOR OTHER PREPROCEDURAL EXAMIN 04/25/2018 MATTI HUFF DO Ot Z01.818 ENCOUNTER FOR OTHER PREPROCEDURAL EXAMIN 04/26/2018 FLAVIA MICHEL MD Ot C34.11 MALIGNANT NEOPLASM OF UPPER LOBE, RIGHT 04/26/2018 FLAVIA MICHEL MD Ot C77.1 SECONDARY AND UNSP MALIGNANT NEOPLASM OF 04/26/2018 FLAVIA MICHEL MD Ot E03.9 HYPOTHYROIDISM, UNSPECIFIED 04/26/2018 FLAVIA MICHEL MD Ot F17.210 NICOTINE DEPENDENCE, CIGARETTES, UNCOMPL 04/26/2018 CONSTANTINE HUFF DOIC B Ot C34.90 MALIGNANT NEOPLASM OF UNSP PART OF UNSP 04/26/2018 DELFAISAL DO MATTI B Ot F17.210 NICOTINE DEPENDENCE, CIGARETTES, UNCOMPL 04/26/2018 CONSTANTINE HUFF DOIC B Ot I87.2 VENOUS INSUFFICIENCY (CHRONIC) (PERIPHER 04/30/2018 MATTI HUFF DO B Ot C34.90 MALIGNANT NEOPLASM OF UNSP PART OF UNSP 04/30/2018 DELCONSTANTINE MALONE DOIC B Ot F17.210 NICOTINE DEPENDENCE, CIGARETTES, UNCOMPL 04/30/2018 CONSTANTINE HUFF DOIC B Ot I87.2 VENOUS INSUFFICIENCY (CHRONIC) (PERIPHER 05/01/2018 FLAVIA MICHEL MD Ot C34.11 MALIGNANT NEOPLASM OF UPPER LOBE, RIGHT 05/01/2018 FLAVIA MICHEL MD Ot C77.1 SECONDARY AND UNSP MALIGNANT NEOPLASM OF 05/01/2018 FLAVIA MICHEL MD Ot E03.9 HYPOTHYROIDISM, UNSPECIFIED 05/01/2018 FLAVIA MICHEL MD Ot F17.210 NICOTINE DEPENDENCE, CIGARETTES, UNCOMPL 05/07/2018 FLAVIA MICHEL MD Ot C34.11 MALIGNANT NEOPLASM OF UPPER LOBE, RIGHT 05/07/2018 FLAVIA MICHEL MD Ot C77.1 SECONDARY AND UNSP MALIGNANT NEOPLASM OF 05/07/2018 FLAVIA MICHEL MD Ot E03.9 HYPOTHYROIDISM, UNSPECIFIED 05/07/2018 FLAVIA MICHEL MD Ot F17.210 NICOTINE DEPENDENCE, CIGARETTES, UNCOMPL 05/09/2018 DELMAN DO, MATTI B Ot R30.0 DYSURIA 05/17/2018 DELMAN DO, MATTI B Ot C34.91 MALIGNANT NEOPLASM OF UNSP PART OF RIGHT 05/17/2018 DELMAN DO, MATTI B Ot F17.210 NICOTINE DEPENDENCE, CIGARETTES, UNCOMPL 05/17/2018 DELMAN DO, MATTI B Ot I87.2 VENOUS INSUFFICIENCY (CHRONIC) (PERIPHER 05/20/2018 DELMAN DO, MATTI B Ot R30.0 DYSURIA 05/29/2018 FLAVIA MICHEL MD Ot C34.11 MALIGNANT NEOPLASM OF UPPER LOBE, RIGHT 05/29/2018 FLAVIA MICHEL MD Ot C77.1 SECONDARY AND UNSP MALIGNANT NEOPLASM OF 05/29/2018 FLAVIA MICHEL MD Ot E03.9 HYPOTHYROIDISM, UNSPECIFIED 05/29/2018 FLAVIA MICHEL MD Ot F17.210 NICOTINE DEPENDENCE, CIGARETTES, UNCOMPL 07/18/2018 FLAVIA MICHEL MD Ot C34.11 MALIGNANT NEOPLASM OF UPPER LOBE, RIGHT 07/18/2018 FLAVIA MICHEL MD Ot C77.1 SECONDARY AND UNSP MALIGNANT NEOPLASM OF 07/18/2018 FLAVIA MICHEL MD Ot E03.9 HYPOTHYROIDISM, UNSPECIFIED 07/18/2018 FLAVIA MICHEL MD Ot F17.210 NICOTINE DEPENDENCE, CIGARETTES, UNCOMPL 07/22/2018 FLAVIA MICHEL MD Ot C34.11 MALIGNANT NEOPLASM OF UPPER LOBE, RIGHT 07/22/2018 FLAVIA MICHEL MD Ot C77.1 SECONDARY AND UNSP MALIGNANT NEOPLASM OF 07/22/2018 FLAVIA MICHEL MD Ot E03.9 HYPOTHYROIDISM, UNSPECIFIED 07/22/2018 FLAVIA MICHEL MD Ot F17.210 NICOTINE DEPENDENCE, CIGARETTES, UNCOMPL 07/22/2018 FLAVIA MICHEL MD Ot Z51.0 ENCOUNTER FOR ANTINEOPLASTIC RADIATION T 07/22/2018 FLAVIA MICHEL MD Ot Z51.11 ENCOUNTER FOR ANTINEOPLASTIC CHEMOTHERAP 07/22/2018 FLAVIA MICHEL MD Ot C34.11 MALIGNANT NEOPLASM OF UPPER LOBE, RIGHT 07/22/2018 FLAVIA MICHEL MD Ot C77.1 SECONDARY AND UNSP MALIGNANT NEOPLASM OF 07/22/2018 FLAVIA MICHEL MD Ot E03.9 HYPOTHYROIDISM, UNSPECIFIED 07/22/2018 FLAVIA MICHEL MD Ot F17.210 NICOTINE DEPENDENCE, CIGARETTES, UNCOMPL 07/22/2018 FLAVIA MICHEL MD Ot Z51.0 ENCOUNTER FOR ANTINEOPLASTIC RADIATION T 07/22/2018 FLAVIA MICHEL MD Ot Z51.11 ENCOUNTER FOR ANTINEOPLASTIC CHEMOTHERAP 07/24/2018 FLAVIA MICHEL MD Ot C34.11 MALIGNANT NEOPLASM OF UPPER LOBE, RIGHT 07/24/2018 FLAVIA MICHEL MD Ot C77.1 SECONDARY AND UNSP MALIGNANT NEOPLASM OF 07/24/2018 FLAVIA MICHEL MD Ot E03.9 HYPOTHYROIDISM, UNSPECIFIED 07/24/2018 FLAVIA MICHEL MD Ot F17.210 NICOTINE DEPENDENCE, CIGARETTES, UNCOMPL 07/26/2018 FLAVIA MICHEL MD Ot C34.11 MALIGNANT NEOPLASM OF UPPER LOBE, RIGHT 07/26/2018 FLAVIA MICHEL MD Ot C77.1 SECONDARY AND UNSP MALIGNANT NEOPLASM OF 07/26/2018 FLAVIA MICHEL MD Ot E03.9 HYPOTHYROIDISM, UNSPECIFIED 07/26/2018 FLAVIA MICHEL MD Ot F17.210 NICOTINE DEPENDENCE, CIGARETTES, UNCOMPL 07/29/2018 FLAVIA MICHEL MD Ot C34.11 MALIGNANT NEOPLASM OF UPPER LOBE, RIGHT 07/29/2018 FLAVIA MICHEL MD Ot C77.1 SECONDARY AND UNSP MALIGNANT NEOPLASM OF 07/29/2018 FLAVIA MICHEL MD Ot E03.9 HYPOTHYROIDISM, UNSPECIFIED 07/29/2018 FLAVIA MICHEL MD Ot F17.210 NICOTINE DEPENDENCE, CIGARETTES, UNCOMPL 08/01/2018 FLAVIA MICHEL MD Ot C34.11 MALIGNANT NEOPLASM OF UPPER LOBE, RIGHT 08/01/2018 FLAVIA MICHEL MD Ot C77.1 SECONDARY AND UNSP MALIGNANT NEOPLASM OF 08/01/2018 FLAVIA MICHEL MD Ot E03.9 HYPOTHYROIDISM, UNSPECIFIED 08/01/2018 FLAVIA MICHEL MD Ot F17.210 NICOTINE DEPENDENCE, CIGARETTES, UNCOMPL 08/27/2018 FLAVIA MICHEL MD Ot R22.2 LOCALIZED SWELLING, MASS AND LUMP, TRUNK 08/27/2018 FLAVIA MICHEL MD Ot R22.2 LOCALIZED SWELLING, MASS AND LUMP, TRUNK 08/28/2018 FLAVIA MICHEL MD Ot C34.11 MALIGNANT NEOPLASM OF UPPER LOBE, RIGHT 08/28/2018 FLAVIA MICHEL MD Ot C77.1 SECONDARY AND UNSP MALIGNANT NEOPLASM OF 08/28/2018 FLAVIA MICHEL MD Ot E03.9 HYPOTHYROIDISM, UNSPECIFIED 08/28/2018 FLAVIA MICHEL MD Ot F17.210 NICOTINE DEPENDENCE, CIGARETTES, UNCOMPL 10/16/2018 FLAVIA MICHEL MD Ot C34.11 MALIGNANT NEOPLASM OF UPPER LOBE, RIGHT 10/16/2018 FLAVIA MICHEL MD Ot C77.1 SECONDARY AND UNSP MALIGNANT NEOPLASM OF 10/16/2018 FLAVIA MICHEL MD Ot E03.9 HYPOTHYROIDISM, UNSPECIFIED 10/16/2018 FLAVIA MICHEL MD Ot F17.210 NICOTINE DEPENDENCE, CIGARETTES, UNCOMPL 10/22/2018 FLAVIA MICHEL MD Ot C34.11 MALIGNANT NEOPLASM OF UPPER LOBE, RIGHT 10/22/2018 FLAVIA MICHEL MD Ot C77.1 SECONDARY AND UNSP MALIGNANT NEOPLASM OF 10/22/2018 FLAVIA MICHEL MD Ot E03.9 HYPOTHYROIDISM, UNSPECIFIED 10/22/2018 FLAVIA MICHEL MD Ot F17.210 NICOTINE DEPENDENCE, CIGARETTES, UNCOMPL 10/24/2018 FLAVIA MICHEL MD Ot C34.11 MALIGNANT NEOPLASM OF UPPER LOBE, RIGHT 10/24/2018 FLAVIA MICHEL MD Ot C77.1 SECONDARY AND UNSP MALIGNANT NEOPLASM OF 10/24/2018 FLAVIA MICHEL MD Ot E03.9 HYPOTHYROIDISM, UNSPECIFIED 10/24/2018 FLAVIA MICHEL MD Ot F17.210 NICOTINE DEPENDENCE, CIGARETTES, UNCOMPL 10/24/2018 FLAVIA MICHEL MD Ot Z51.11 ENCOUNTER FOR ANTINEOPLASTIC CHEMOTHERAP 10/24/2018 FLAVIA MICHEL MD Ot Z79.899 OTHER EMBOSSING CLERK (CURRENT) DRUG THERAPY 10/31/2018 FLAVIA MICHEL MD, Ot C34.11 MALIGNANT NEOPLASM OF UPPER LOBE, RIGHT 10/31/2018 FLAVIA MICHEL MD, Ot C77.1 SECONDARY AND UNSP MALIGNANT NEOPLASM OF 10/31/2018 FLAVIA MICHEL MD Ot E03.9 HYPOTHYROIDISM, UNSPECIFIED 10/31/2018 FLAVIA MICHEL MD Ot F17.210 NICOTINE DEPENDENCE, CIGARETTES, UNCOMPL 11/22/2018 FLAVIA MICHEL MD, Ot C34.11 MALIGNANT NEOPLASM OF UPPER LOBE, RIGHT 11/22/2018 FLAVIA MICHEL MD, Ot C77.1 SECONDARY AND UNSP MALIGNANT NEOPLASM OF 11/22/2018 FLAVIA MICHEL MD Ot E03.9 HYPOTHYROIDISM, UNSPECIFIED 11/22/2018 FLAVIA MICHEL MD Ot F17.210 NICOTINE DEPENDENCE, CIGARETTES, UNCOMPL 11/22/2018 FLAVIA MICHEL MD Ot J44.9 CHRONIC OBSTRUCTIVE PULMONARY DISEASE, U 11/22/2018 FLAVIA MICHEL MD Ot Z51.11 ENCOUNTER FOR ANTINEOPLASTIC CHEMOTHERAP 11/22/2018 FLAVIA MICHEL MD Ot Z79.51 EMBOSSING CLERK (CURRENT) USE OF INHALED STERO 11/27/2018 FLAVIA MICHEL MD Ot C34.11 MALIGNANT NEOPLASM OF UPPER LOBE, RIGHT 11/27/2018 FLAVIA MICHEL MD Ot C77.1 SECONDARY AND UNSP MALIGNANT NEOPLASM OF 11/27/2018 FLAVIA MICHEL MD Ot E03.9 HYPOTHYROIDISM, UNSPECIFIED 11/27/2018 FLAVIA MICHEL MD Ot F17.210 NICOTINE DEPENDENCE, CIGARETTES, UNCOMPL 11/27/2018 FLAVIA MICHEL MD Ot J44.9 CHRONIC OBSTRUCTIVE PULMONARY DISEASE, U 11/27/2018 FLAVIA MICHEL MD Ot Z51.11 ENCOUNTER FOR ANTINEOPLASTIC CHEMOTHERAP 11/27/2018 FLAVIA MICHEL MD Ot Z79.51 EMBOSSING CLERK (CURRENT) USE OF INHALED STERO 12/18/2018 FLAVIA MICHEL MD Ot J98.59 OTHER DISEASES OF MEDIASTINUM, NOT ELSEW 12/18/2018 FLAVIA MICHEL MD Ot J98.59 OTHER DISEASES OF MEDIASTINUM, NOT ELSEW 12/29/2018 FLAVIA MICHEL MD Ot C34.90 MALIGNANT NEOPLASM OF UNSP PART OF UNSP 12/29/2018 FLAVIA MICHEL MD Ot Z95.828 PRESENCE OF OTHER VASCULAR IMPLANTS AND Procedures There is no data. Results Test Result Range Methicillin resistant Staphylococcus aureus (MRSA) screening culture - 04/26/18 08:05 Methicillin resistant Staphylococcus aureus (MRSA) screening culture NEG NRG Urine beta human chorionic gonadotropin (hCG) measurement - 04/26/18 08:30 Urine beta human chorionic gonadotropin (hCG) measurement NEGATIVE NEGATIVE Encounters ACCT No. Visit Date/Time Discharge Status Pt. Type Provider Facility Loc./Unit Complaint [id number] 11/14/2018 08:28:41 11/14/2018 23:59:59 CLS Outpatient JACOB ANDRES [id number] 07/12/2018 08:28:31 07/12/2018 23:59:59 CLS Outpatient JACOB ANDRES [id number] 06/13/2018 09:24:16 06/13/2018 23:59:59 CLS Outpatient JACOB ANDRES [id number] 04/02/2018 11:32:16 04/02/2018 23:59:59 CLS Outpatient JACOB ANDRES [id number] 03/25/2018 09:36:05 03/25/2018 23:59:59 CLS Outpatient JACOB ANDRES [id number] 12/05/2016 07:57:01 12/05/2016 23:59:59 CLS Outpatient JACOB ANDRES [id number] 11/30/2016 08:46:33 11/30/2016 23:59:59 CLS Outpatient JACOB ANDRES [id number] 08/07/2016 12:36:45 08/07/2016 23:59:59 CLS Outpatient JACOB ANDRES [id number] 12/25/2018 10:15:00 12/25/2018 23:59:59 CLS Outpatient FLAVIA MICHEL MD [facility] RAD LUNG CANCER [id number] 12/17/2018 08:54:00 12/17/2018 23:59:59 CLS Outpatient FLAVIA MICHEL MD [facility] ONC [id number] 10/16/2018 14:37:00 10/22/2018 00:01:00 DIS Outpatient FLAVIA MICHEL MD [facility] ONC [id number] 06/26/2018 12:37:00 07/18/2018 00:01:00 DIS Outpatient FLAVIA MICHEL MD [facility] ONC [id number] 07/17/2018 10:38:00 07/17/2018 23:59:59 CLS Outpatient FLAVIA MICHEL MD [facility] RAD LUNG CANCER [id number] 05/07/2018 14:24:00 05/07/2018 23:59:59 CLS Outpatient MATTI HUFF DO [facility] LAB R30.0 [id number] 04/26/2018 07:40:00 04/26/2018 11:20:00 DIS Outpatient MATTI HUFF DO [facility] SDC LUNG CARCINOMA [id number] 04/24/2018 06:42:00 04/24/2018 13:17:00 DIS Outpatient MATTI HUFF DO [facility] PREOP PORT PLACEMENT [id number] 12/30/2018 13:25:00 PEN Preadmit FLAVIA MICHEL MD [facility] RAD LUNG CA
[2019-01-01] MEDS ORDERED: SEVOFLURANE (ULTANE) 15 ML INHAL SOLN ONE (07:11)
[2019-01-01] MEDS ORDERED: proPOfol 200 MG/20 ML (DIPRIVAN) VIAL IV ONE (07:11)
[2019-01-01] MEDS ORDERED: DEXAMETHASONE 10 MG/ML (DECADRON) 1 ML VIAL ONE (07:12)
[2019-01-01] MEDS ORDERED: ONDANSETRON 4 MG/2 ML (SDV) Z0FRAN ONE (07:12)
[2019-01-01] MEDS ORDERED: GLYCOPYRROLATE 0.2 MG/ML (ROBINUL) 2 ML VIAL ONE (07:12)
[2019-01-01] MEDS ORDERED: ROCURONIUM 10 MG/ML 5 ML SYRINGE IV ONE (07:12)
[2019-01-01] MEDS ORDERED: fentaNYL INJECTION 100 MCG/2 ML AMP ONE (07:12)
[2019-01-01] MEDS ORDERED: NEOSTIGMINE 1 MG/ML 5 ML SYRINGE ONE (07:13)
[2019-01-01] MEDS ORDERED: LACTATED RINGERS 1,000 ML IV STA (07:43)
[2019-01-01] MEDS ORDERED: SUGAMMADEX 500 MG/5 ML VIAL (BRIDION) IV ONE (08:07)
--- NOTE | 2019-01-01 08:31 | Pulmonary Procedures ---
Pulmonary Procedures Date of Procedure Date of Service: Jan 01, 2019 Bronch Bronchoscopy with RLL bronchoalveolar lavage (BAL), bilateral washes and, RLL transbronchial brushes using Fluoroscopy. EBUS was used to US mediastinum however there were not any lymph nodes large enough to bx. Preop DX Lung cancer Postop DX: same. No endobrachial mass Complications: none After informed consent obtained and formal time out pt was sedated using F entanyl and Versed. Bronchoscope was advanced through the nare and vocal cords. 1% lidocaine was used to anesthetize vocal cords, epiglottis, alejandrina, and left/right main stem bronchus. An anatomical tour was undertaken down to the segmental bronchi bilaterally. No endobronchial lesions noted. Bronchoscopy with RLL bronchoalveolar lavage (BAL), bilateral washes and, RLL transbronchial brushes using Fluoroscopy. EBUS was used to US mediastinum however there were not any lymph nodes large enough to bx. Pt tolerated procedure well. No complications noted. Stat CXR is pending. SYLVAIN MARTINEZ DO Jan 01, 2019 08:31
[2019-01-01 08:37] VITALS: BP 112/53
[2019-01-01 08:45] VITALS: BP 91/52
[2019-01-01 09:20] VITALS: BP 100/59
--- NOTE | 2019-01-01 12:18 | Diagnostic Imaging Report ---
INDICATION: Postop exam. FINDINGS: A tunneled catheter via the right subclavian has its tip near or just below the cavoatrial junction. There is no pneumothorax. There is right perihilar airspace opacity and zones of atelectasis. No pneumothorax. IMPRESSION: No pneumothorax. There are abnormal right perihilar parenchymal densities which may be mass or infiltrates. No pneumothorax or pleural fluid. Dictated by: Dictated on workstation # [id number]
--- NOTE | 2019-01-01 13:41 | Diagnostic Imaging Report ---
INDICATION: Bronchoscopy. FINDINGS: Eight seconds of fluoroscopy time was utilized during bronchoscopy. IMPRESSION: Fluoroscopy during bronchoscopy. Dictated by: Dictated on workstation # [id number]
[2019-01-01 14:19] VITALS: BP 100/59
== END 2019-01-01 09:30 | disposition home or self-care (01) ==
LOC: ENDO 06:47
PROVIDERS: ATTEND Internal Medicine Critical Care Medicine
DX: C34.11 Malignant neoplasm of upper lobe, right bronchus or lung (principal); R05 Cough; R06.89 Other abnormalities of breathing; J30.9 Allergic rhinitis, unspecified; R06.00 Dyspnea, unspecified; R91.8 Other nonspecific abnormal finding of lung field; G47.10 Hypersomnia, unspecified; F17.210 Nicotine dependence, cigarettes, uncomplicated; R06.83 Snoring; K21.9 Gastro-esophageal reflux disease without esophagitis; Z79.899 Other long term (current) drug therapy
CPT/HCPCS: 71045; 87015; 87070; 87101; 87116; 87205; 87206; 94640

== ENCOUNTER 2019-01-15 14:00 | Outpatient (RCR) | payer BC ==
[2018-11-13 13:32] LABS: BASOPHILS # (AUTO) 0.1 10^3/uL (0.0-0.1); BASOPHILS % (AUTO) 1 % (0-10); EOSINOPHILS # (AUTO) 0.2 10^3/uL (0.0-0.3); EOSINOPHILS % (AUTO) 2 % (0-10); HEMATOCRIT 38 % (35-52); HEMOGLOBIN 12.7 G/DL (11.5-16.0); LYMPHOCYTES # (AUTO) 1.2 X 10^3 (1.0-4.0); LYMPHOCYTES % (AUTO) 16 % (12-44); MEAN CORPUSCULAR HEMOGLOBIN 31 PG (25-34); MEAN CORPUSCULAR HGB CONC 34 G/DL (32-36); MEAN CORPUSCULAR VOLUME 92 FL (80-99); MEAN PLATELET VOLUME 8.2 FL (7.4-10.4); MONOCYTES # (AUTO) 0.6 X 10^3 (0.0-1.0); MONOCYTES % (AUTO) 8 % (0-12); NEUTROPHILS # (AUTO) 5.5 X 10^3 (1.8-7.8); NEUTROPHILS % (AUTO) 73 % (42-75); PLATELET COUNT 313 10^3/uL (130-400); RED CELL DISTRIBUTION WIDTH 13.8 % (10.0-14.5); WHITE BLOOD COUNT 7.5 10^3/uL (4.3-11.0)
[2018-11-13 13:56] LABS: ALANINE AMINOTRANSFERASE 9 U/L (0-55); ALBUMIN 4.6 GM/DL (3.2-4.5); ALKALINE PHOSPHATASE 60 U/L (40-136); BILIRUBIN,TOTAL 0.4 MG/DL (0.1-1.0); BUN/CREATININE RATIO 9; CALCIUM 9.9 MG/DL (8.5-10.1); CARBON DIOXIDE 25 MMOL/L (21-32); CHLORIDE 104 MMOL/L (98-107); CREATININE SERUM 0.87 MG/DL (0.60-1.30); GFR ESTIMATED > 60; GLUCOSE 108 MG/DL (70-105); POTASSIUM 3.9 MMOL/L (3.6-5.0); SODIUM 141 MMOL/L (135-145); TOTAL PROTEIN 7.6 GM/DL (6.4-8.2)
[2018-12-17 09:21] LABS: BASOPHILS # (AUTO) 0.1 10^3/uL (0.0-0.1); BASOPHILS % (AUTO) 1 % (0-10); EOSINOPHILS # (AUTO) 0.1 10^3/uL (0.0-0.3); EOSINOPHILS % (AUTO) 2 % (0-10); HEMATOCRIT 35 % (35-52); HEMOGLOBIN 11.8 G/DL (11.5-16.0); LYMPHOCYTES % (AUTO) 20 % (12-44); MEAN CORPUSCULAR HEMOGLOBIN 31 PG (25-34); MEAN CORPUSCULAR HGB CONC 33 G/DL (32-36); MEAN CORPUSCULAR VOLUME 93 FL (80-99); MEAN PLATELET VOLUME 7.9 FL (7.4-10.4); MONOCYTES # (AUTO) 0.4 X 10^3 (0.0-1.0); MONOCYTES % (AUTO) 8 % (0-12); NEUTROPHILS # (AUTO) 3.5 X 10^3 (1.8-7.8); NEUTROPHILS % (AUTO) 69 % (42-75); PLATELET COUNT 289 10^3/uL (130-400); RED CELL DISTRIBUTION WIDTH 14.9 % (10.0-14.5)
[2018-12-17 09:38] LABS: ALANINE AMINOTRANSFERASE 7 U/L (0-55); ALBUMIN 4.2 GM/DL (3.2-4.5); ALKALINE PHOSPHATASE 54 U/L (40-136); BILIRUBIN,TOTAL 0.3 MG/DL (0.1-1.0); BUN/CREATININE RATIO 9; CALCIUM 9.1 MG/DL (8.5-10.1); CARBON DIOXIDE 26 MMOL/L (21-32); CHLORIDE 104 MMOL/L (98-107); CREATININE SERUM 0.86 MG/DL (0.60-1.30); GFR ESTIMATED > 60; GLUCOSE 128 MG/DL (70-105); POTASSIUM 3.6 MMOL/L (3.6-5.0); SODIUM 139 MMOL/L (135-145); TOTAL PROTEIN 6.8 GM/DL (6.4-8.2)
[~2019-01-15 14:00] MED LIST changes: +DURVALUMAB 500 MG in NS (IVPB) CANCER CENTER 100 ML IV SCH; +NS IV 500 ML (CANCER CENTER) IV SCH
[2019-01-15 14:48] LABS: BASOPHILS % (AUTO) 1 % (0-10); EOSINOPHILS # (AUTO) 0.1 10^3/uL (0.0-0.3); EOSINOPHILS % (AUTO) 2 % (0-10); HEMATOCRIT 33 % (35-52); HEMOGLOBIN 11.2 G/DL (11.5-16.0); LYMPHOCYTES % (AUTO) 17 % (12-44); MEAN CORPUSCULAR HEMOGLOBIN 32 PG (25-34); MEAN CORPUSCULAR HGB CONC 34 G/DL (32-36); MEAN CORPUSCULAR VOLUME 94 FL (80-99); MEAN PLATELET VOLUME 8.1 FL (7.4-10.4); MONOCYTES # (AUTO) 0.6 X 10^3 (0.0-1.0); MONOCYTES % (AUTO) 9 % (0-12); NEUTROPHILS # (AUTO) 4.2 X 10^3 (1.8-7.8); NEUTROPHILS % (AUTO) 71 % (42-75); PLATELET COUNT 349 10^3/uL (130-400); RED CELL DISTRIBUTION WIDTH 14.1 % (10.0-14.5); WHITE BLOOD COUNT 5.9 10^3/uL (4.3-11.0)
[2019-01-15 15:08] LABS: ALANINE AMINOTRANSFERASE 7 U/L (0-55); ALBUMIN 4.4 GM/DL (3.2-4.5); ALKALINE PHOSPHATASE 69 U/L (40-136); BILIRUBIN,TOTAL 0.6 MG/DL (0.1-1.0); BUN/CREATININE RATIO 12; CALCIUM 9.7 MG/DL (8.5-10.1); CARBON DIOXIDE 27 MMOL/L (21-32); CHLORIDE 102 MMOL/L (98-107); CREATININE SERUM 0.74 MG/DL (0.60-1.30); GFR ESTIMATED > 60; GLUCOSE 144 MG/DL (70-105); POTASSIUM 3.6 MMOL/L (3.6-5.0); SODIUM 140 MMOL/L (135-145); TOTAL PROTEIN 7.4 GM/DL (6.4-8.2)
== END 2019-01-28 | disposition home or self-care (01) ==
LOC: ONC 14:00
PROVIDERS: ATTEND Internal Medicine Hematology & Oncology
DX: Z51.11 Encounter for antineoplastic chemotherapy (principal); C34.11 Malignant neoplasm of upper lobe, right bronchus or lung; C77.1 Secondary and unspecified malignant neoplasm of intrathoracic lymph nodes; E03.9 Hypothyroidism, unspecified; F17.210 Nicotine dependence, cigarettes, uncomplicated; J44.9 Chronic obstructive pulmonary disease, unspecified; Z79.51 Long term (current) use of inhaled steroids
CPT/HCPCS: 36415; 36591; 80053; 82378; 84443; 85025; 96413

== ENCOUNTER → 2019-02-19 | Outpatient (CLI) | payer BC ==
[~2019-02-19] MED LIST changes: -DURVALUMAB 500 MG in NS (IVPB) CANCER CENTER 100 ML IV SCH; +HOLD METFORMIN - RECEIVED CONTRAST 20 ML VIAL IV SCH; +IOHEXOL 350 MG/ML 100 ML (OMNIPAQUE 350) VIAL IV ONE; +NS 100 ML (IVPB) BAG IV ONE; -NS IV 500 ML (CANCER CENTER) IV SCH
[2019-02-19 12:39] LABS: BUN/CREATININE RATIO 13; CREATININE SERUM 0.75 MG/DL (0.60-1.30); GFR ESTIMATED > 60
--- NOTE | 2019-02-19 16:26 | Diagnostic Imaging Report ---
PROCEDURE: CT chest with contrast only. TECHNIQUE: Multiple contiguous axial images were obtained through the chest after administration of intravenous contrast. Auto Exposure Controls were utilized during the CT exam to meet ALARA standards for radiation dose reduction. INDICATION: Lung cancer. FINDINGS: The previous CT chest exam performed on 12/25/2018 noted a 1.3 x 2.2 cm mass in the right suprahilar region. That findings is again evident on this study and now measures 0.8 x 2.9 cm. Furthermore on the coronal images, there does appear to be greater cephalad extension of the mass. The mass now has a longitudinal measurement of 3.4 cm as opposed to 2.4 cm previously. The prior study also identified 3.2 x 3.6 cm mass with cavitation along the posterior aspect of the right upper lobe. That finding now measures 3.2 x 4.4 cm. The small 4.8 mm nodule in the right apex seen previously is no longer visualized. The overall appearance of the lungs does not appear to have changed significantly. The 1.0 x 1.3 cm pretracheal lymph node seen previously measures only 1.1 x 1.2 cm on this exam. No other adenopathy is noted. The heart is stable in size. There is no defect within the pulmonary arteries to indicate a pulmonary embolus. The aorta is not abnormally dilated. The thyroid gland was not well visualized. The sections through the upper abdomen failed to show any sign of an acute abnormality. There is no obvious breast mass. The bone windows are unremarkable for fracture or for destructive lesion. IMPRESSION: 1. The appearance of the chest has worsened somewhat as the mass in the right suprahilar region and the cavitary mass along the posterior aspect of the right upper lung do measure slightly larger than on the prior exam. No new neoplastic abnormality has developed, otherwise. 2. There is no evidence for an acute cardiopulmonary abnormality. Dictated by: Dictated on workstation # [id number]
== END ==
LOC: RAD 12:04
PROVIDERS: ATTEND Internal Medicine Hematology & Oncology
DX: C34.11 Malignant neoplasm of upper lobe, right bronchus or lung (principal)
CPT/HCPCS: 36415; 71260; 82565; 84520

== ENCOUNTER → 2019-03-11 | Outpatient (CLI) | payer BC ==
[~2019-03-11] MED LIST changes: -HOLD METFORMIN - RECEIVED CONTRAST 20 ML VIAL IV SCH; -IOHEXOL 350 MG/ML 100 ML (OMNIPAQUE 350) VIAL IV ONE; -NS 100 ML (IVPB) BAG IV ONE
--- NOTE | 2019-03-13 09:25 | Diagnostic Imaging Report ---
EXAMINATION: PET CT INDICATION: Lung cancer TECHNIQUE: PET/CT imaging was obtained from the base of the skull through the pelvis after the administration of 14.44 mCi of F-[address] imaging was utilized for localization and attenuation correction purposes. The low energy CT utilized for attenuation correction is not considered to be of high enough spatial resolution to allow in and of itself a separate anatomical analysis. The patient's height is 5 foot 2 inches weight 116 pounds. PET images were obtained one hour after injection. There are no prior PET/CT examinations available for comparison. CT chest exam performed on 02/19/2019 indicated that the appearance of the chest had worsened since the prior exam of 12/25/2018 as the mass in the right suprahilar region a cavitary mass along the posterior aspect of the right upper lung did measure somewhat greater in size. On this exam the areas of increased density about the right hilum are not hypermetabolic. Maximum SUV of these areas is 2.3. There is no other hypermetabolic activity seen to suggest the presence of malignancy. There is slightly increased uptake in the soft tissues of the right axilla and right supraclavicular region. Most likely this is due to muscle activity. There is physiologic activity in the brain, the heart, kidneys, the bowel and the bladder. IMPRESSION: 1. The soft tissue densities about the right hilum seen on the recent CT chest exam are not hypermetabolic and consequently not felt to be related to malignancy. 2. There is no other hypermetabolic activity to suggest the presence of malignancy. 3. These results were discussed with Dr. Acevedo and Dr. Yusuf.. Dictated by: Dictated on workstation # [id number]
== END ==
LOC: RAD 10:05
PROVIDERS: ATTEND Internal Medicine Hematology & Oncology
DX: C34.90 Malignant neoplasm of unspecified part of unspecified bronchus or lung (principal)

== ENCOUNTER 2019-05-07 13:55 | Outpatient (RCR) | payer BC ==
[2019-02-12 14:25] LABS: BASOPHILS % (AUTO) 1 % (0-10); EOSINOPHILS # (AUTO) 0.1 10^3/uL (0.0-0.3); EOSINOPHILS % (AUTO) 2 % (0-10); HEMATOCRIT 36 % (35-52); HEMOGLOBIN 11.9 G/DL (11.5-16.0); LYMPHOCYTES # (AUTO) 1.1 X 10^3 (1.0-4.0); LYMPHOCYTES % (AUTO) 18 % (12-44); MEAN CORPUSCULAR HEMOGLOBIN 32 PG (25-34); MEAN CORPUSCULAR HGB CONC 33 G/DL (32-36); MEAN CORPUSCULAR VOLUME 95 FL (80-99); MEAN PLATELET VOLUME 8.1 FL (7.4-10.4); MONOCYTES # (AUTO) 0.6 X 10^3 (0.0-1.0); MONOCYTES % (AUTO) 11 % (0-12); NEUTROPHILS # (AUTO) 3.9 X 10^3 (1.8-7.8); NEUTROPHILS % (AUTO) 68 % (42-75); PLATELET COUNT 353 10^3/uL (130-400); WHITE BLOOD COUNT 5.7 10^3/uL (4.3-11.0)
[2019-02-12 14:50] LABS: ALANINE AMINOTRANSFERASE < 6 U/L (0-55); ALBUMIN 4.3 GM/DL (3.2-4.5); ALKALINE PHOSPHATASE 58 U/L (40-136); BILIRUBIN,TOTAL 0.3 MG/DL (0.1-1.0); BUN/CREATININE RATIO 10; CALCIUM 9.8 MG/DL (8.5-10.1); CARBON DIOXIDE 25 MMOL/L (21-32); CHLORIDE 103 MMOL/L (98-107); CREATININE SERUM 0.73 MG/DL (0.60-1.30); GFR ESTIMATED > 60; GLUCOSE 153 MG/DL (70-105); POTASSIUM 3.9 MMOL/L (3.6-5.0); SODIUM 140 MMOL/L (135-145); TOTAL PROTEIN 7.4 GM/DL (6.4-8.2)
[2019-03-26 13:03] LABS: BASOPHILS % (AUTO) 1 % (0-10); EOSINOPHILS # (AUTO) 0.1 10^3/uL (0.0-0.3); EOSINOPHILS % (AUTO) 2 % (0-10); HEMATOCRIT 36 % (35-52); HEMOGLOBIN 11.9 G/DL (11.5-16.0); LYMPHOCYTES # (AUTO) 1.1 X 10^3 (1.0-4.0); LYMPHOCYTES % (AUTO) 19 % (12-44); MEAN CORPUSCULAR HEMOGLOBIN 31 PG (25-34); MEAN CORPUSCULAR HGB CONC 33 G/DL (32-36); MEAN CORPUSCULAR VOLUME 94 FL (80-99); MEAN PLATELET VOLUME 8.1 FL (7.4-10.4); MONOCYTES # (AUTO) 0.7 X 10^3 (0.0-1.0); MONOCYTES % (AUTO) 12 % (0-12); NEUTROPHILS # (AUTO) 3.8 X 10^3 (1.8-7.8); NEUTROPHILS % (AUTO) 66 % (42-75); PLATELET COUNT 320 10^3/uL (130-400); RED CELL DISTRIBUTION WIDTH 12.4 % (10.0-14.5); WHITE BLOOD COUNT 5.7 10^3/uL (4.3-11.0)
[2019-03-26 13:24] LABS: ALANINE AMINOTRANSFERASE < 6 U/L (0-55); ALBUMIN 4.2 GM/DL (3.2-4.5); ALKALINE PHOSPHATASE 59 U/L (40-136); BILIRUBIN,TOTAL 0.2 MG/DL (0.1-1.0); BUN/CREATININE RATIO 15; CALCIUM 9.4 MG/DL (8.5-10.1); CARBON DIOXIDE 28 MMOL/L (21-32); CHLORIDE 104 MMOL/L (98-107); CREATININE SERUM 0.65 MG/DL (0.60-1.30); GFR ESTIMATED > 60; GLUCOSE 132 MG/DL (70-105); SODIUM 143 MMOL/L (135-145); TOTAL PROTEIN 6.9 GM/DL (6.4-8.2)
[2019-04-23 14:08] LABS: BASOPHILS # (AUTO) 0.1 10^3/uL (0.0-0.1); BASOPHILS % (AUTO) 1 % (0-10); EOSINOPHILS # (AUTO) 0.1 10^3/uL (0.0-0.3); EOSINOPHILS % (AUTO) 2 % (0-10); HEMATOCRIT 38 % (35-52); HEMOGLOBIN 12.8 G/DL (11.5-16.0); LYMPHOCYTES # (AUTO) 1.3 X 10^3 (1.0-4.0); LYMPHOCYTES % (AUTO) 19 % (12-44); MEAN CORPUSCULAR HEMOGLOBIN 31 PG (25-34); MEAN CORPUSCULAR HGB CONC 33 G/DL (32-36); MEAN CORPUSCULAR VOLUME 93 FL (80-99); MEAN PLATELET VOLUME 8.2 FL (7.4-10.4); MONOCYTES # (AUTO) 0.6 X 10^3 (0.0-1.0); MONOCYTES % (AUTO) 9 % (0-12); NEUTROPHILS # (AUTO) 4.8 X 10^3 (1.8-7.8); NEUTROPHILS % (AUTO) 69 % (42-75); PLATELET COUNT 323 10^3/uL (130-400); RED CELL DISTRIBUTION WIDTH 12.6 % (10.0-14.5); WHITE BLOOD COUNT 6.9 10^3/uL (4.3-11.0)
[2019-04-23 14:28] LABS: ALANINE AMINOTRANSFERASE 7 U/L (0-55); ALBUMIN 4.4 GM/DL (3.2-4.5); ALKALINE PHOSPHATASE 71 U/L (40-136); BILIRUBIN,TOTAL 0.2 MG/DL (0.1-1.0); BUN/CREATININE RATIO 10; CALCIUM 9.9 MG/DL (8.5-10.1); CARBON DIOXIDE 27 MMOL/L (21-32); CHLORIDE 102 MMOL/L (98-107); GFR ESTIMATED > 60; GLUCOSE 123 MG/DL (70-105); POTASSIUM 4.1 MMOL/L (3.6-5.0); SODIUM 141 MMOL/L (135-145); TOTAL PROTEIN 7.6 GM/DL (6.4-8.2)
[~2019-05-07 13:55] MED LIST changes: +DURVALUMAB 500 MG in NS (IVPB) CANCER CENTER 100 ML IV SCH; +NS IV 500 ML (CANCER CENTER) IV SCH
== END 2019-05-13 | disposition home or self-care (01) ==
LOC: ONC 13:55
PROVIDERS: ATTEND Internal Medicine Hematology & Oncology
DX: C34.11 Malignant neoplasm of upper lobe, right bronchus or lung (principal); C77.1 Secondary and unspecified malignant neoplasm of intrathoracic lymph nodes; E03.9 Hypothyroidism, unspecified; F17.210 Nicotine dependence, cigarettes, uncomplicated; J44.9 Chronic obstructive pulmonary disease, unspecified; Z79.51 Long term (current) use of inhaled steroids
CPT/HCPCS: 36591; 80053; 82378; 84443; 85025; 96413; 99213

== ENCOUNTER 2019-07-23 13:49 | Outpatient (RCR) | payer BC ==
[2019-05-21 14:25] LABS: BASOPHILS # (AUTO) 0.1 10^3/uL (0.0-0.1); BASOPHILS % (AUTO) 1 % (0-10); EOSINOPHILS # (AUTO) 0.1 10^3/uL (0.0-0.3); EOSINOPHILS % (AUTO) 2 % (0-10); HEMATOCRIT 37 % (35-52); HEMOGLOBIN 12.3 G/DL (11.5-16.0); LYMPHOCYTES # (AUTO) 1.5 X 10^3 (1.0-4.0); LYMPHOCYTES % (AUTO) 24 % (12-44); MEAN CORPUSCULAR HEMOGLOBIN 30 PG (25-34); MEAN CORPUSCULAR HGB CONC 33 G/DL (32-36); MEAN CORPUSCULAR VOLUME 91 FL (80-99); MEAN PLATELET VOLUME 8.2 FL (7.4-10.4); MONOCYTES # (AUTO) 0.6 X 10^3 (0.0-1.0); MONOCYTES % (AUTO) 9 % (0-12); NEUTROPHILS # (AUTO) 4.2 X 10^3 (1.8-7.8); NEUTROPHILS % (AUTO) 64 % (42-75); PLATELET COUNT 340 10^3/uL (130-400); RED CELL DISTRIBUTION WIDTH 12.9 % (10.0-14.5); WHITE BLOOD COUNT 6.6 10^3/uL (4.3-11.0)
[2019-05-21 14:44] LABS: ALANINE AMINOTRANSFERASE 7 U/L (0-55); ALBUMIN 4.4 GM/DL (3.2-4.5); ALKALINE PHOSPHATASE 62 U/L (40-136); BILIRUBIN,TOTAL 0.3 MG/DL (0.1-1.0); BUN/CREATININE RATIO 18; CALCIUM 9.5 MG/DL (8.5-10.1); CARBON DIOXIDE 26 MMOL/L (21-32); CHLORIDE 102 MMOL/L (98-107); CREATININE SERUM 0.68 MG/DL (0.60-1.30); GFR ESTIMATED > 60; GLUCOSE 117 MG/DL (70-105); POTASSIUM 4.2 MMOL/L (3.6-5.0); SODIUM 138 MMOL/L (135-145); TOTAL PROTEIN 7.2 GM/DL (6.4-8.2)
[2019-06-18 14:35] LABS: BASOPHILS % (AUTO) 1 % (0-10); EOSINOPHILS % (AUTO) 1 % (0-10); HEMATOCRIT 36 % (35-52); HEMOGLOBIN 11.9 G/DL (11.5-16.0); LYMPHOCYTES # (AUTO) 1.1 X 10^3 (1.0-4.0); LYMPHOCYTES % (AUTO) 21 % (12-44); MEAN CORPUSCULAR HEMOGLOBIN 30 PG (25-34); MEAN CORPUSCULAR HGB CONC 33 G/DL (32-36); MEAN CORPUSCULAR VOLUME 91 FL (80-99); MEAN PLATELET VOLUME 8.1 FL (7.4-10.4); MONOCYTES # (AUTO) 0.6 X 10^3 (0.0-1.0); MONOCYTES % (AUTO) 11 % (0-12); NEUTROPHILS # (AUTO) 3.3 X 10^3 (1.8-7.8); NEUTROPHILS % (AUTO) 67 % (42-75); PLATELET COUNT 309 10^3/uL (130-400); RED CELL DISTRIBUTION WIDTH 13.1 % (10.0-14.5)
[2019-06-18 14:55] LABS: ALANINE AMINOTRANSFERASE < 6 U/L (0-55); ALBUMIN 4.4 GM/DL (3.2-4.5); ALKALINE PHOSPHATASE 78 U/L (40-136); BILIRUBIN,TOTAL 0.3 MG/DL (0.1-1.0); BUN/CREATININE RATIO 12; CALCIUM 9.6 MG/DL (8.5-10.1); CARBON DIOXIDE 27 MMOL/L (21-32); CHLORIDE 104 MMOL/L (98-107); CREATININE SERUM 0.66 MG/DL (0.60-1.30); GFR ESTIMATED > 60; GLUCOSE 117 MG/DL (70-105); POTASSIUM 3.7 MMOL/L (3.6-5.0); SODIUM 139 MMOL/L (135-145); TOTAL PROTEIN 7.3 GM/DL (6.4-8.2)
[2019-07-23 14:06] LABS: BASOPHILS % (AUTO) 1 % (0-10); EOSINOPHILS # (AUTO) 0.1 10^3/uL (0.0-0.3); EOSINOPHILS % (AUTO) 1 % (0-10); HEMATOCRIT 34 % (35-52); LYMPHOCYTES # (AUTO) 0.9 X 10^3 (1.0-4.0); LYMPHOCYTES % (AUTO) 14 % (12-44); MEAN CORPUSCULAR HEMOGLOBIN 30 PG (25-34); MEAN CORPUSCULAR HGB CONC 33 G/DL (32-36); MEAN CORPUSCULAR VOLUME 92 FL (80-99); MEAN PLATELET VOLUME 7.8 FL (7.4-10.4); MONOCYTES # (AUTO) 0.6 X 10^3 (0.0-1.0); MONOCYTES % (AUTO) 9 % (0-12); NEUTROPHILS # (AUTO) 4.8 X 10^3 (1.8-7.8); NEUTROPHILS % (AUTO) 75 % (42-75); PLATELET COUNT 382 10^3/uL (130-400); WHITE BLOOD COUNT 6.4 10^3/uL (4.3-11.0)
[2019-07-23 14:24] LABS: ALANINE AMINOTRANSFERASE < 6 U/L (0-55); ALBUMIN 4.1 GM/DL (3.2-4.5); ALKALINE PHOSPHATASE 82 U/L (40-136); BILIRUBIN,TOTAL 0.1 MG/DL (0.1-1.0); BUN/CREATININE RATIO 18; CARBON DIOXIDE 26 MMOL/L (21-32); CHLORIDE 105 MMOL/L (98-107); CREATININE SERUM 0.72 MG/DL (0.60-1.30); GFR ESTIMATED > 60; GLUCOSE 122 MG/DL (70-105); POTASSIUM 4.1 MMOL/L (3.6-5.0); SODIUM 141 MMOL/L (135-145); TOTAL PROTEIN 7.1 GM/DL (6.4-8.2)
== END 2019-08-19 | disposition home or self-care (01) ==
LOC: ONC 13:49
PROVIDERS: ATTEND Internal Medicine Hematology & Oncology
DX: Z51.11 Encounter for antineoplastic chemotherapy (principal); C34.11 Malignant neoplasm of upper lobe, right bronchus or lung; C77.1 Secondary and unspecified malignant neoplasm of intrathoracic lymph nodes; E03.9 Hypothyroidism, unspecified; F17.210 Nicotine dependence, cigarettes, uncomplicated; J44.9 Chronic obstructive pulmonary disease, unspecified; Z79.51 Long term (current) use of inhaled steroids
CPT/HCPCS: 36591; 80053; 84443; 85025; 96413

== ENCOUNTER 2019-11-26 13:47 | Outpatient (RCR) | payer BC ==
[~2019-11-26 13:47] MED LIST changes: -DURVALUMAB 500 MG in NS (IVPB) CANCER CENTER 100 ML IV SCH; -NS IV 500 ML (CANCER CENTER) IV SCH
[2019-11-26 14:04] LABS: BASOPHILS # (AUTO) 0.1 10^3/uL (0.0-0.1); BASOPHILS % (AUTO) 1 % (0-10); EOSINOPHILS # (AUTO) 0.1 10^3/uL (0.0-0.3); EOSINOPHILS % (AUTO) 1 % (0-10); HEMATOCRIT 41 % (35-52); HEMOGLOBIN 13.7 G/DL (11.5-16.0); LYMPHOCYTES # (AUTO) 1.7 X 10^3 (1.0-4.0); LYMPHOCYTES % (AUTO) 25 % (12-44); MEAN CORPUSCULAR HEMOGLOBIN 30 PG (25-34); MEAN CORPUSCULAR HGB CONC 34 G/DL (32-36); MEAN CORPUSCULAR VOLUME 90 FL (80-99); MONOCYTES # (AUTO) 0.6 X 10^3 (0.0-1.0); MONOCYTES % (AUTO) 8 % (0-12); NEUTROPHILS # (AUTO) 4.4 X 10^3 (1.8-7.8); NEUTROPHILS % (AUTO) 65 % (42-75); PLATELET COUNT 383 10^3/uL (130-400); RED CELL DISTRIBUTION WIDTH 13.7 % (10.0-14.5); WHITE BLOOD COUNT 6.7 10^3/uL (4.3-11.0)
[2019-11-26 14:27] LABS: ALANINE AMINOTRANSFERASE 6 U/L (0-55); ALBUMIN 4.4 GM/DL (3.2-4.5); ALKALINE PHOSPHATASE 109 U/L (40-136); BILIRUBIN,TOTAL 0.3 MG/DL (0.1-1.0); BUN/CREATININE RATIO 12; CALCIUM 9.8 MG/DL (8.5-10.1); CARBON DIOXIDE 28 MMOL/L (21-32); CHLORIDE 103 MMOL/L (98-107); CREATININE SERUM 0.73 MG/DL (0.60-1.30); GFR ESTIMATED > 60; GLUCOSE 146 MG/DL (70-105); SODIUM 141 MMOL/L (135-145); TOTAL PROTEIN 7.8 GM/DL (6.4-8.2)
== END 2019-12-02 | disposition home or self-care (01) ==
LOC: ONC 13:47
PROVIDERS: ATTEND Internal Medicine Hematology & Oncology
DX: C34.11 Malignant neoplasm of upper lobe, right bronchus or lung (principal); C77.1 Secondary and unspecified malignant neoplasm of intrathoracic lymph nodes; E03.9 Hypothyroidism, unspecified; F17.210 Nicotine dependence, cigarettes, uncomplicated; J44.9 Chronic obstructive pulmonary disease, unspecified; Z79.51 Long term (current) use of inhaled steroids; Z45.2 Encounter for adjustment and management of vascular access device
CPT/HCPCS: 36591; 80053; 84443; 85025; 96523

== ENCOUNTER → 2019-12-02 | Outpatient (CLI) | payer BC ==
--- NOTE | 2019-12-02 13:03 | Diagnostic Imaging Report ---
INDICATION: Lung cancer with subsequent treatment strategy and restaging. TECHNIQUE: Serum blood glucose level at the time of injection was 118 mg/dL. Patient was administered 14.8 mCi F-18 FDG intravenously in the right hand and PET imaging was performed from the top of the skull to mid thighs. Noncontrast CT was also performed for attenuation correction and anatomic correlation. COMPARISON: Correlation is made with prior PET/CT study from 03/11/2019. FINDINGS: There is symmetric activity throughout the brain. Soft tissues of the neck are unremarkable. Abnormal soft tissue in the right paramediastinal location is again noted. This does not demonstrate metabolic activity and may represent paramediastinal fibrosis. No definite mediastinal or hilar hypermetabolism is identified. There does appear to be trace right-sided pleural fluid or pleural thickening. Abdomen and pelvis demonstrate physiologic activity within the GI and tracts. There is a focus of hypermetabolic activity to the right of the urinary bladder in the pelvis which appears to correlate with portion of the colon. While this could be physiologic, this is somewhat focal and a colonic lesion cannot be entirely excluded. No other abnormalities are seen. IMPRESSION: 1. Findings suggestive of post-therapeutic and fibrotic changes in the right paramediastinal location. No suspicious activity to suggest neoplastic involvement of the chest is seen. 2. Focus of activity in the right pelvis adjacent to urinary bladder, indeterminate. Colonoscopy would be recommended if not recently performed to exclude a colonic mass. Dictated by: Dictated on workstation # [id number]
== END ==
LOC: RAD 07:51
PROVIDERS: ATTEND Internal Medicine Hematology & Oncology
DX: C34.11 Malignant neoplasm of upper lobe, right bronchus or lung (principal); K63.89 Other specified diseases of intestine

== ENCOUNTER 2019-12-04 08:49 | Outpatient (RCR) | payer BC ==
[2019-12-17] MEDS ORDERED: LEVO100T7 PO (11:41)
[2020-01-01] MEDS ORDERED: ASPIRIN 81 MG CHEW (CHILDREN'S ASA) ONE (15:31)
[2020-01-01] MEDS ORDERED: NITROGLYCERIN 0.4 MG SL TABS BTL 25'S SL ONE (15:31)
[2020-01-01] MEDS ORDERED: NS IV 1000 ML 1,000 ML ONE (16:07)
[2020-01-01] MEDS ORDERED: morphine INJ 10 MG/ML 1ML (SYR OR VIAL) ONE (16:07)
== END 2020-03-04 | disposition home or self-care (01) ==
LOC: ONC 08:49
PROVIDERS: ATTEND Internal Medicine Hematology & Oncology
DX: C34.11 Malignant neoplasm of upper lobe, right bronchus or lung (principal); C77.1 Secondary and unspecified malignant neoplasm of intrathoracic lymph nodes; E03.4 Atrophy of thyroid (acquired); F17.210 Nicotine dependence, cigarettes, uncomplicated; J44.9 Chronic obstructive pulmonary disease, unspecified; R05 Cough; K59.04 Chronic idiopathic constipation; Z79.899 Other long term (current) drug therapy; Z95.828 Presence of other vascular implants and grafts; Z98.890 Other specified postprocedural states; Z79.51 Long term (current) use of inhaled steroids
CPT/HCPCS: 99213

== ENCOUNTER 2019-12-18 08:35 | Outpatient (RCR) | payer BC ==
[~2019-12-18] VITALS: Ht 157.5 cm; Wt 54.1 kg
[~2019-12-18 08:35] MED LIST changes: +LEVO100T7 PO
== END 2019-12-18 16:15 | disposition home or self-care (01) ==
LOC: PREOP 08:35
PROVIDERS: ATTEND Surgery
DX: Z01.812 Encounter for preprocedural laboratory examination (principal); Z11.59 Encounter for screening for other viral diseases; Z85.118 Personal history of other malignant neoplasm of bronchus and lung
CPT/HCPCS: 87635

== ENCOUNTER 2020-03-31 11:53 | Outpatient (RCR) | payer BC | END 2020-06-29 | disposition home or self-care (01) | LOC: ONC 11:53 | PROVIDERS: ATTEND Internal Medicine Hematology & Oncology | DX: Z45.2 Encounter for adjustment and management of vascular access device (principal); C34.11 Malignant neoplasm of upper lobe, right bronchus or lung; C77.1 Secondary and unspecified malignant neoplasm of intrathoracic lymph nodes; E03.9 Hypothyroidism, unspecified; J44.9 Chronic obstructive pulmonary disease, unspecified; K59.04 Chronic idiopathic constipation; F17.210 Nicotine dependence, cigarettes, uncomplicated; Z79.899 Other long term (current) drug therapy; Z95.828 Presence of other vascular implants and grafts; Z98.890 Other specified postprocedural states; Z79.51 Long term (current) use of inhaled steroids; Z92.21 Personal history of antineoplastic chemotherapy | CPT/HCPCS: 96523 ==

== ENCOUNTER → 2020-10-12 | Outpatient (CLI) | payer BC ==
--- NOTE | 2020-10-12 19:13 | Diagnostic Imaging Report ---
EXAM: PET/CT INDICATION: Malignant neoplasm of the lung. TECHNIQUE: PET/CT imaging was obtained from the base of the skull through the pelvis after the administration of 14.73 mCi of F-[address] imaging was utilized for localization and attenuation correction purposes. The low energy CT utilized for attenuation correction is not considered to be of high enough spatial resolution to allow in and of itself a separate anatomical analysis. Height is 5' 2" Weight 120 Blood glucose 102 The previous PET/CT exam performed on 12/02/2019 noted post-therapeutic and fibrotic changes in the right paramediastinal location. There is no hypermetabolic activity in this region to suggest neoplastic disease however. On this exam, the CT images do suggest that the soft tissue density about the right hilum is perhaps somewhat greater in size than on the prior study. However, there is still no hypermetabolic focus in this area to suggest recurrent malignancy. The maximum SUV throughout this region is only 1.6 The previous study also raised the question of a colonic mass in the right pelvis adjacent to the urinary bladder. On this exam, that finding is again evident. This apparent mass may in fact be part of the bladder wall on the right. I am not convinced that this has changed significantly in size since the prior exam but this area is hypermetabolic with a maximum SUV of 6.2. If further study is desired, then CT of the pelvis with intravenous contrast and delayed imaging of the bladder should be obtained. There is no other hypermetabolic activity to suggest the presence of malignancy. However, the CT images do show that in the interval since the prior exam, the amount of fluid in the right lung base seen previously has increased in size considerably. The fluid now measures approximately 12.5 cm. There is also somewhat greater compressive atelectasis/infiltrate in the right upper lobe near the superior margin of the fluid. The left lung remains generally clear. IMPRESSION: 1. The post therapeutic and fibrotic changes involving the right paramediastinal region seen on the prior study are again evident and do not appear to have changed significantly. There is no hypermetabolic activity in this area to suggest recurrent neoplastic disease. 2. The small hypermetabolic focus in the right pelvis seen previously is again evident. This could be related to the bladder wall on the right and the possibility that this is secondary to an underlying neoplastic process involving the bladder should be considered. Recommendations as above. 3. There is no other hypermetabolic activity to indicate the presence of malignancy. 4. There has been a considerable increase in the amount of fluid in the right lung since the prior exam. Dictated on workstation # [id number]
== END ==
LOC: RAD 08:02
PROVIDERS: ATTEND Internal Medicine Hematology & Oncology
DX: C34.90 Malignant neoplasm of unspecified part of unspecified bronchus or lung (principal)
CPT/HCPCS: 78815; A9552

== ENCOUNTER 2020-10-21 13:02 | Outpatient (RCR) | payer BC ==
[2020-07-29 11:04] LABS: BASOPHILS # (AUTO) 0.1 10^3/uL (0.0-0.1); BASOPHILS % (AUTO) 1 % (0-10); EOSINOPHILS # (AUTO) 0.1 10^3/uL (0.0-0.3); EOSINOPHILS % (AUTO) 1 % (0-10); HEMATOCRIT 40 % (35-52); LYMPHOCYTES % (AUTO) 27 % (12-44); MEAN CORPUSCULAR HEMOGLOBIN 30 pg (25-34); MEAN CORPUSCULAR HGB CONC 33 g/dL (32-36); MEAN CORPUSCULAR VOLUME 93 fL (80-99); MEAN PLATELET VOLUME 8.1 fL (9.0-12.2); MONOCYTES # (AUTO) 0.6 10^3/uL (0.0-1.0); MONOCYTES % (AUTO) 8 % (0-12); NEUTROPHILS # (AUTO) 4.7 10^3/uL (1.8-7.8); NEUTROPHILS % (AUTO) 63 % (42-75); PLATELET COUNT 364 10^3/uL (130-400); WHITE BLOOD COUNT 7.4 10^3/uL (4.3-11.0)
[2020-07-29 11:35] LABS: ALANINE AMINOTRANSFERASE 8 U/L (0-55); ALBUMIN 4.3 GM/DL (3.2-4.5); ALKALINE PHOSPHATASE 85 U/L (40-136); BILIRUBIN,TOTAL 0.4 MG/DL (0.1-1.0); BUN/CREATININE RATIO 13; CALCIUM 9.5 MG/DL (8.5-10.1); CARBON DIOXIDE 27 MMOL/L (21-32); CHLORIDE 100 MMOL/L (98-107); CREATININE SERUM 0.71 MG/DL (0.60-1.30); GFR ESTIMATED > 60; GLUCOSE 130 MG/DL (70-105); POTASSIUM 3.9 MMOL/L (3.6-5.0); SODIUM 136 MMOL/L (135-145); TOTAL PROTEIN 7.7 GM/DL (6.4-8.2)
[2020-10-21 13:18] LABS: BASOPHILS # (AUTO) 0.1 10^3/uL (0.0-0.1); BASOPHILS % (AUTO) 1 % (0-10); EOSINOPHILS # (AUTO) 0.1 10^3/uL (0.0-0.3); EOSINOPHILS % (AUTO) 2 % (0-10); HEMATOCRIT 38 % (35-52); HEMOGLOBIN 12.5 g/dL (11.5-16.0); LYMPHOCYTES # (AUTO) 1.8 10^3/uL (1.0-4.0); LYMPHOCYTES % (AUTO) 23 % (12-44); MEAN CORPUSCULAR HEMOGLOBIN 30 pg (25-34); MEAN CORPUSCULAR HGB CONC 33 g/dL (32-36); MEAN CORPUSCULAR VOLUME 92 fL (80-99); MEAN PLATELET VOLUME 8.2 fL (9.0-12.2); MONOCYTES # (AUTO) 0.6 10^3/uL (0.0-1.0); MONOCYTES % (AUTO) 8 % (0-12); NEUTROPHILS # (AUTO) 5.2 10^3/uL (1.8-7.8); NEUTROPHILS % (AUTO) 66 % (42-75); PLATELET COUNT 363 10^3/uL (130-400); WHITE BLOOD COUNT 7.9 10^3/uL (4.3-11.0)
[2020-10-21 13:35] LABS: ALANINE AMINOTRANSFERASE 6 U/L (0-55); ALKALINE PHOSPHATASE 71 U/L (40-136); BILIRUBIN,TOTAL 0.2 MG/DL (0.1-1.0); BUN/CREATININE RATIO 12; CALCIUM 8.7 MG/DL (8.5-10.1); CARBON DIOXIDE 26 MMOL/L (21-32); CHLORIDE 104 MMOL/L (98-107); CREATININE SERUM 0.67 MG/DL (0.60-1.30); GFR ESTIMATED > 60; GLUCOSE 121 MG/DL (70-105); POTASSIUM 3.9 MMOL/L (3.6-5.0); SODIUM 139 MMOL/L (135-145); TOTAL PROTEIN 7.3 GM/DL (6.4-8.2)
== END 2020-10-27 | disposition home or self-care (01) ==
LOC: ONC 13:02
PROVIDERS: ATTEND Internal Medicine Hematology & Oncology
DX: Z45.2 Encounter for adjustment and management of vascular access device (principal); C34.11 Malignant neoplasm of upper lobe, right bronchus or lung; C77.1 Secondary and unspecified malignant neoplasm of intrathoracic lymph nodes; E03.9 Hypothyroidism, unspecified; J44.9 Chronic obstructive pulmonary disease, unspecified; K59.04 Chronic idiopathic constipation; F17.210 Nicotine dependence, cigarettes, uncomplicated; Z79.899 Other long term (current) drug therapy; Z95.828 Presence of other vascular implants and grafts; Z98.890 Other specified postprocedural states; Z79.51 Long term (current) use of inhaled steroids; Z92.21 Personal history of antineoplastic chemotherapy
CPT/HCPCS: 80053; 84443; 85025; G0463; 36591; 82378

== ENCOUNTER 2020-10-22 09:44 | Outpatient (CLI) | payer BC ==
[~2020-10-22] VITALS: Ht 157.5 cm; Wt 54.1 kg
[2020-10-22 10:00] VITALS: BP 114/56
--- NOTE | 2020-10-22 10:59 | Progress Note-Pre Operative ---
Pre-Operative Progress Note H&P Reviewed The H&P was reviewed, patient examined and no changes noted. Time Seen by Provider: 10:21 Date H&P Reviewed: Oct 22, 2020 Time H&P Reviewed: 10:22 Pre-Operative Diagnosis: Pleural fluid, Lung CA MATTI HUFF DO Oct 22, 2020 10:58
--- NOTE | 2020-10-22 11:04 | Progress Note-Post Operative ---
Post-Operative Progess Note Surgeon (s)/Building Trades Instructor (s) Surgeon MATTI HUFF DO Building Trades Instructor: none Pre-Operative Diagnosis Pleural fluid, Lung CA Post-Operative Diagnosis same pending path Procedure & Operative Findings Date of Procedure 10/22/20 Procedure Performed/Findings After informed consent was obtained, the patient was in the Same day surgery room, timeout was performed and then the patient was sterilely prepped and draped in normal fashion. She had already been previously marked by the ultrasound and then I first infiltrated the skin with local; next I made a small stab incision with #11 blade and then advanced the safe-T needle at the spot that ultrasound had marked; gently into the pleural cavity, able to push through and then got a good flash of a whitish fluid and then pushed the catheter in and pulled the needle out. Catheter went in easily and then hooked this up to vacutainer and got out white, milky fluid. No bleeding as the needle was inserted and then it drained approximately 1300ml of pleural fluid. Pt began coughing and at this point elected to remove the catheter, the area was cleaned and dried and bandaged. Sponge, instrument and needle count correct at the end of the case. Anesthesia Type local lidocaine Estimated Blood Loss Estimated blood loss (mL): scant Specimens/Packing Specimens Removed pleural fluid MATTI HUFF DO Oct 22, 2020 11:04
--- NOTE | 2020-10-22 11:07 | Discharge Inst-Surgical ---
Discharge Inst-Surgical Depart Medication/Instructions New, Converted or Re-Newed RX: Other (use home meds) Patient Instructions Follow up Appt: Make appointment for 1 week. [phone] Instructions: No lifting greater than 20 pounds. No strenuous activity. May shower in 24 hours, no tub bath or soaking. Use incentive spirometer at home as directed. No Smoking Skin/Wound Care: May remove bandages in two days. Symptoms to Report: Appetite Changes, Extremity Discoloration, Numbness/Tingling, Swelling Increased, Bleeding Excessive, Eyesight Changes, Pain Increased, Urine Color Change, Constipation(Persistent), Fever over 101 degree F, Pain/Pressure in chest, Urinating Difficulty, Cough Up/Vomit Blood, Heart Beat Irreg/Pounding, Pain/Pressure in jaw, Cramps in feet or legs, Lightheadedness, Pain/Pressure in shoulder, Diarrhea(Persistent), Memory Changes Suddenly, Questions/Concerns, Weight gain consecutive days, Dizziness/Fainting, Nausea/Vomiting, Shortness of Breath, Weight gain over 2 pounds If questions or concerns contact your physician Or seek help at emergency department. Activity Driving Instructions: No Driving/Refer to Dr. Saleem Discharge Diet: No Restrictions Diet After 24 Hours: Clear Liquid if Nauseous If Any Problems/Questions/Issu: Contact Your Physician, Go to Emergency Room Skin/Wound Care Infection Signs and Symptoms: Increased Redness, Foul Odor of Wound, Increased Drainage, Skin Itchy or Has a Rash, Increased Swelling, Temperature Above 101 F Bathing Instructions: MATTI Ruano DO Oct 22, 2020 11:07
--- NOTE | 2020-10-22 11:25 | Diagnostic Imaging Report ---
Clinical Indications: Patient is status post thoracentesis. Exam: Portable chest x-ray upright view. Comparisons: Chest x-ray dated 01/01/2019. Findings: There is no pneumothorax. There is no pleural effusion. Slight low lung volumes are noted. Otherwise, the lungs are clear. Pulmonary vasculature and cardiac silhouette are within normal limits. [id number] is seen overlying the right chest with tip in the high right atrial junction region. There is mild prominence of the bilateral hilar regions which is less so compared to the prior study. Previously seen right upper lobe and right lung opacities have resolved. IMPRESSION: 1: There is no evidence of pneumothorax. 2: There is no radiographic evidence of acute cardiopulmonary process. 3: Again seen, mild prominence of the bilateral perihilar region which has decreased in the interim. Dictated by: Dictated on workstation # [id number]
[2020-10-22 11:57] LABS: GLUCOSE,BODY FLUID 110 MG/DL; TOTAL PROTEIN,BODY FLUID 6.9 G/DL
[2020-10-22 11:58] LABS: AMYLASE,BODY FLUID 48 U/L
[2020-10-22 11:59] LABS: LDH,BODY FLUID 116 U/L
[2020-10-22 14:48] LABS: BODY FLUID APPEARENCE MOD CLDY; BODY FLUID COLOR COLORLESS; BODY FLUID SOURCE PLEURAL
[2020-10-22 14:49] LABS: BODY FLUID RBC COUNT 558 /uL; BODY FLUID WBC TOTAL COUNT 828 /uL
[2020-10-22 14:50] LABS: BF OTHER CELLS 7 %; LYMPHOCYTES,BODY FLUID 79 %
== END 2020-10-22 11:49 | disposition home or self-care (01) ==
LOC: RAD 09:44
PROVIDERS: ATTEND Surgery
DX: C34.90 Malignant neoplasm of unspecified part of unspecified bronchus or lung (principal); Z95.828 Presence of other vascular implants and grafts
CPT/HCPCS: 32554; 71045; 82150; 82570; 82945; 83615; 84157; 87070; 87075; 87205; 89051

== ENCOUNTER → 2020-12-16 | Outpatient (CLI) | payer BC ==
[~2020-12-16] MED LIST changes: +BARIUM SUSPENSION 2.1% (VANILLA SILQ) 450 ML PO ONE; +CATHETER FLUSH 10 ML SYR IV PRN; +HOLD METFORMIN - RECEIVED CONTRAST 20 ML VIAL IV SCH; +IOHEXOL 350 MG/ML 100 ML (OMNIPAQUE 350) VIAL IV ONE; +NS 100 ML (IVPB) BAG IV ONE
--- NOTE | 2020-12-16 14:26 | Diagnostic Imaging Report ---
PROCEDURE: CT chest and abdomen with contrast. TECHNIQUE: Multiple contiguous axial images were obtained through the chest and abdomen after the administration of intravenous contrast. Auto Exposure Controls were utilized during the CT exam to meet ALARA standards for radiation dose reduction. INDICATION: Coughing, chest pain, history of lung malignancy. Compared with chest CT performed 02/19/2019 as well as correlated with metabolic PET CT performed more recently 10/12/2020. FINDINGS: There is a large unilateral right pleural effusion showing no change in volume or distribution from the prior metabolic PET CT. Some post-therapeutic right paramediastinal radiation fibrosis is stable. No new focal abnormal pulmonary density. No appreciable thoracic adenopathy. The patent aorta is nonaneurysmal. No acute soft tissue or osseous chest wall lesion. Central line via the right has its tip at the cavoatrial junction in good position. ABDOMEN: Liver is unremarkable. Gallbladder and bile ducts negative. There is no adrenal mass. Spleen is normal. Pancreas unremarkable. There is no abdominal mesenteric or retroperitoneal lymphadenopathy. No small or large bowel obstruction. No ascites. The unobstructed kidneys appeared normal and the bony structures of the abdomen unremarkable. IMPRESSION: 1. Persistent large right pleural effusion and paramediastinal postradiation fibrosis unchanged from correlative studies. There were no findings at this exam to suggest CT evidence for neoplastic recurrence or adverse change. 2. The abdominal portion of the study is stable and negative. Dictated by: Dictated on workstation # [id number]
== END ==
LOC: RAD 13:45
PROVIDERS: ATTEND Internal Medicine Hematology & Oncology
DX: J90 Pleural effusion, not elsewhere classified (principal); J70.1 Chronic and other pulmonary manifestations due to radiation; Z85.118 Personal history of other malignant neoplasm of bronchus and lung
CPT/HCPCS: 71260; 74160

== ENCOUNTER → 2020-12-23 | Outpatient (CLI) | payer BC ==
[~2020-12-23] VITALS: Ht 157.5 cm; Wt 52.7 kg
[~2020-12-23] MED LIST changes: -BARIUM SUSPENSION 2.1% (VANILLA SILQ) 450 ML PO ONE; -CATHETER FLUSH 10 ML SYR IV PRN; -HOLD METFORMIN - RECEIVED CONTRAST 20 ML VIAL IV SCH; -IOHEXOL 350 MG/ML 100 ML (OMNIPAQUE 350) VIAL IV ONE; -NS 100 ML (IVPB) BAG IV ONE
[2020-12-23 11:30] VITALS: BP 93/40
[2020-12-23 11:37] VITALS: BP 93/50
[2020-12-23 11:45] VITALS: BP 96/64
--- NOTE | 2020-12-23 12:02 | Diagnostic Imaging Report ---
EXAMINATION: PA chest at 11:48 a.m. INDICATION: Post thoracentesis. FINDINGS: Reportedly, the patient underwent thoracentesis on the right earlier today. The appearance of the chest has improved considerably since the prior CT chest exam of 12/16/2020 as the large right pleural effusion noted previously has diminished in size significantly. There is no sign of a pneumothorax on the right. The overall appearance of the chest has not changed significantly otherwise since the prior chest exam of 10/22/2020. IMPRESSION: The appearance of the chest has improved considerably since the prior exam following thoracentesis. There is no sign of a pneumothorax on the right. Dictated by: Dictated on workstation # [id number]
[2020-12-23 12:41] LABS: AMYLASE,BODY FLUID 48 U/L; GLUCOSE,BODY FLUID 109 MG/DL; LDH,BODY FLUID 110 U/L; TOTAL PROTEIN,BODY FLUID 7.1 G/DL
--- NOTE | 2020-12-23 12:45 | Diagnostic Imaging Report ---
EXAMINATION: Ultrasound-guided thoracentesis INDICATION: Pleural Effusion The CT chest and abdomen exam performed on 12/16/2020 noted a large right pleural effusion. Using ultrasound guidance a large collection of fluid was identified in the lower thorax on the right. The skin over the fluid collection was marked for the thoracentesis to be performed by Dr. Esposito. Reportedly the thoracentesis was conducted without any complication. Approximately 1600 mL of fluid was removed. IMPRESSION: There has been successful localization of fluid in the right lung base for thoracentesis. Dictated by: Dictated on workstation # [id number]
--- NOTE | 2020-12-23 13:29 | Progress Note-Post Operative ---
Post-Operative Progess Note Surgeon (s)/Drum Tester (s) Surgeon MATTI HUFF DO Drum Tester: none Pre-Operative Diagnosis Pleural fluid, Lung CA Post-Operative Diagnosis same Procedure & Operative Findings Date of Procedure 12/23/20 Procedure Performed/Findings After informed consent was obtained, the patient was in the Radiology procedure room, timeout was performed and then the patient was sterilely prepped and draped in normal fashion. She had already been previously marked by the ultrasound and then I first infiltrated the skin with local; next I made a small stab incision with #11 blade and then advanced the safe-T needle at the spot that ultrasound had marked; gently into the pleural cavity, able to push through and then got a good flash of a yellowish/whitish fluid and then pushed the catheter in and pulled the needle out. Catheter went in easily and then hooked this up to vacutainer and got out yellow/white milky fluid. No bleeding as the needle was inserted and then it drained approximately 1650ml of pleural fluid. Removed the catheter once it was done draining and the area was cleaned and dried and bandaged. Sponge, instrument and needle count correct at the end of the case. Anesthesia Type local lidocaine Estimated Blood Loss Estimated blood loss (mL): scant Specimens/Packing Specimens Removed 1650 of yellowish/whitish fluid MATTI HUFF DO Dec 23, 2020 13:29
[2020-12-23 15:08] LABS: BODY FLUID APPEARENCE MKD BLDY; BODY FLUID COLOR COLORLESS; BODY FLUID SOURCE PLEURAL
[2020-12-23 15:09] LABS: BF OTHER CELLS 21 %; BODY FLUID RBC COUNT 850 /uL; BODY FLUID WBC TOTAL COUNT 1125 /uL; LYMPHOCYTES,BODY FLUID 75 %
== END ==
LOC: RAD 10:33
PROVIDERS: ATTEND Surgery
DX: J90 Pleural effusion, not elsewhere classified (principal)
CPT/HCPCS: 32555; 71045; 82150; 82570; 82945; 83615; 84157; 87070; 87075; 87205; 89051; A7048

== ENCOUNTER → 2021-01-20 | Outpatient (CLI) | payer BC ==
[~2021-01-20] MED LIST changes: +CATHETER FLUSH 10 ML SYR IV PRN; +HOLD METFORMIN - RECEIVED CONTRAST 20 ML VIAL IV SCH; +IOHEXOL 350 MG/ML 100 ML (OMNIPAQUE 350) VIAL IV ONE; +NS 100 ML (IVPB) BAG IV ONE
--- NOTE | 2021-01-20 12:55 | Diagnostic Imaging Report ---
EXAMINATION: CT chest with intravenous contrast. TECHNIQUE: Multiple contiguous axial images were obtained through the chest after the uneventful administration of intravenous contrast. All CT scans use one or more of the following dose optimizing techniques: Automated exposure control, MA and/or KvP adjustment based on patient size and exam type or iterative reconstruction. HISTORY: Lung cancer. COMPARISON: PET/CT dated 10/12/2020. FINDINGS: There is a large right pleural effusion which appears similar to prior PET/CT. There is collapse of the right lower lobe. There is partial collapse of the right upper lobe. There is architectural distortion and fibrosis of the right hilum with collapse of the medial right upper lobe and irregularity of the bronchi. No discrete measurable mass is seen, and the amount of soft tissue is grossly similar to prior PET/CT. No pleural nodules or enhancement are seen. There is a right-sided port catheter. Left lung is clear without edema or pneumonia. No left pleural effusion. No pneumothorax. There is no axillary or supraclavicular lymphadenopathy. Heart size is normal. No pericardial effusion. Aorta is normal in caliber. There are no coronary artery calcifications. Limited views of the upper abdomen are unremarkable. There are no suspicious osseous lesions. IMPRESSION: 1. Stable right hilar fibrosis likely related to prior radiation therapy given history of lung cancer. The degree of soft tissue is unchanged, and there is no evidence for local recurrence. 2. Unchanged large right pleural effusion without pleural enhancement or nodularity to indicate pleural metastatic disease. Dictated by: Dictated on workstation # [id number]
== END ==
LOC: RAD 10:15
PROVIDERS: ATTEND Internal Medicine Hematology & Oncology
DX: J84.10 Pulmonary fibrosis, unspecified (principal); J90 Pleural effusion, not elsewhere classified; Z92.3 Personal history of irradiation; Z85.118 Personal history of other malignant neoplasm of bronchus and lung
CPT/HCPCS: 71260

== ENCOUNTER 2021-01-27 13:00 | Outpatient (RCR) | payer BC ==
[2020-12-16 12:59] LABS: BASOPHILS # (AUTO) 0.1 10^3/uL (0.0-0.1); BASOPHILS % (AUTO) 1 % (0-10); EOSINOPHILS # (AUTO) 0.1 10^3/uL (0.0-0.3); EOSINOPHILS % (AUTO) 1 % (0-10); HEMATOCRIT 39 % (35-52); HEMOGLOBIN 12.9 g/dL (11.5-16.0); LYMPHOCYTES # (AUTO) 1.9 10^3/uL (1.0-4.0); LYMPHOCYTES % (AUTO) 23 % (12-44); MEAN CORPUSCULAR HEMOGLOBIN 30 pg (25-34); MEAN CORPUSCULAR HGB CONC 33 g/dL (32-36); MEAN CORPUSCULAR VOLUME 92 fL (80-99); MEAN PLATELET VOLUME 8.1 fL (9.0-12.2); MONOCYTES # (AUTO) 0.8 10^3/uL (0.0-1.0); MONOCYTES % (AUTO) 10 % (0-12); NEUTROPHILS # (AUTO) 5.4 10^3/uL (1.8-7.8); NEUTROPHILS % (AUTO) 65 % (42-75); PLATELET COUNT 385 10^3/uL (130-400); WHITE BLOOD COUNT 8.3 10^3/uL (4.3-11.0)
[2020-12-16 13:19] LABS: ALANINE AMINOTRANSFERASE 7 U/L (0-55); ALBUMIN 4.1 GM/DL (3.2-4.5); ALKALINE PHOSPHATASE 67 U/L (40-136); BILIRUBIN,TOTAL 0.3 MG/DL (0.1-1.0); BUN/CREATININE RATIO 12; CALCIUM 9.6 MG/DL (8.5-10.1); CARBON DIOXIDE 27 MMOL/L (21-32); CHLORIDE 103 MMOL/L (98-107); CREATININE SERUM 0.68 MG/DL (0.60-1.30); GFR ESTIMATED > 60; GLUCOSE 122 MG/DL (70-105); SODIUM 139 MMOL/L (135-145); TOTAL PROTEIN 7.5 GM/DL (6.4-8.2)
[2021-01-20 09:50] LABS: BASOPHILS # (AUTO) 0.1 10^3/uL (0.0-0.1); BASOPHILS % (AUTO) 1 % (0-10); EOSINOPHILS # (AUTO) 0.2 10^3/uL (0.0-0.3); EOSINOPHILS % (AUTO) 2 % (0-10); HEMATOCRIT 39 % (35-52); HEMOGLOBIN 12.8 g/dL (11.5-16.0); LYMPHOCYTES # (AUTO) 1.7 10^3/uL (1.0-4.0); LYMPHOCYTES % (AUTO) 22 % (12-44); MEAN CORPUSCULAR HEMOGLOBIN 31 pg (25-34); MEAN CORPUSCULAR HGB CONC 33 g/dL (32-36); MEAN CORPUSCULAR VOLUME 93 fL (80-99); MONOCYTES # (AUTO) 0.7 10^3/uL (0.0-1.0); MONOCYTES % (AUTO) 9 % (0-12); NEUTROPHILS # (AUTO) 4.9 10^3/uL (1.8-7.8); NEUTROPHILS % (AUTO) 65 % (42-75); PLATELET COUNT 362 10^3/uL (130-400); WHITE BLOOD COUNT 7.6 10^3/uL (4.3-11.0)
[2021-01-20 10:10] LABS: ALANINE AMINOTRANSFERASE 10 U/L (0-55); ALBUMIN 3.8 GM/DL (3.2-4.5); ALKALINE PHOSPHATASE 75 U/L (40-136); BILIRUBIN,TOTAL 0.2 MG/DL (0.1-1.0); BUN/CREATININE RATIO 11; CALCIUM 9.3 MG/DL (8.5-10.1); CARBON DIOXIDE 28 MMOL/L (21-32); CHLORIDE 106 MMOL/L (98-107); CREATININE SERUM 0.66 MG/DL (0.60-1.30); GFR ESTIMATED > 60; GLUCOSE 93 MG/DL (70-105); POTASSIUM 4.2 MMOL/L (3.6-5.0); SODIUM 139 MMOL/L (135-145); TOTAL PROTEIN 6.9 GM/DL (6.4-8.2)
[~2021-01-27 13:00] MED LIST changes: -CATHETER FLUSH 10 ML SYR IV PRN; -HOLD METFORMIN - RECEIVED CONTRAST 20 ML VIAL IV SCH; -IOHEXOL 350 MG/ML 100 ML (OMNIPAQUE 350) VIAL IV ONE; -NS 100 ML (IVPB) BAG IV ONE
== END 2021-02-02 07:54 | disposition home or self-care (01) ==
LOC: ONC 13:00
PROVIDERS: ATTEND Internal Medicine Hematology & Oncology
DX: Z45.2 Encounter for adjustment and management of vascular access device (principal); C34.11 Malignant neoplasm of upper lobe, right bronchus or lung; C77.1 Secondary and unspecified malignant neoplasm of intrathoracic lymph nodes; E03.9 Hypothyroidism, unspecified; J44.9 Chronic obstructive pulmonary disease, unspecified; K59.04 Chronic idiopathic constipation; F17.210 Nicotine dependence, cigarettes, uncomplicated; Z79.899 Other long term (current) drug therapy; Z95.828 Presence of other vascular implants and grafts; Z98.890 Other specified postprocedural states; Z79.51 Long term (current) use of inhaled steroids; Z92.21 Personal history of antineoplastic chemotherapy
CPT/HCPCS: 36591; 80053; 84443; 85025; 99213

== ENCOUNTER → 2021-04-14 | Outpatient (CLI) | payer BC ==
[~2021-04-14] MED LIST changes: +HOLD METFORMIN - RECEIVED CONTRAST 20 ML VIAL IV SCH; +IOHEXOL 350 MG/ML 100 ML (OMNIPAQUE 350) VIAL IV ONE; +NS 100 ML (IVPB) BAG IV ONE
--- NOTE | 2021-04-14 18:20 | Diagnostic Imaging Report ---
EXAMINATION: CT chest with intravenous contrast. TECHNIQUE: Multiple contiguous axial images were obtained through the chest after the uneventful administration of intravenous contrast. All CT scans use one or more of the following dose optimizing techniques: automated exposure control, MA and/or KvP adjustment based on patient size and exam type or iterative reconstruction. HISTORY: Lung cancer COMPARISON: 01/20/2021 FINDINGS: There is a stable large right pleural effusion with areas of loculation contacting of the lung to the pleural surface, there is right hilar atelectasis and fibrosis presumably related to prior radiation therapy. The degree of soft tissue in the right hilum is unchanged. Right-sided Port-A-Cath is present. There is no pneumothorax. The left lung is clear without edema or pneumonia. No pleural effusion on the left There is no axillary or supraclavicular lymphadenopathy. No mediastinal lymphadenopathy. Heart size is normal. No pericardial effusion. Aorta is normal in caliber. There are no coronary artery calcifications. Limited views of the upper abdomen are unremarkable. There are no suspicious osseus lesions IMPRESSION: 1. Unchanged right hilar fibrosis and distortion suggestive of prior radiation therapy, the amount of soft tissue is unchanged 2. Unchanged large right partially loculated pleural effusion without pleural thickening or enhancement to indicate metastatic disease, Dictated by: Dictated on workstation # [id number]
== END ==
LOC: RAD 14:45
PROVIDERS: ATTEND Internal Medicine Hematology & Oncology
DX: J84.10 Pulmonary fibrosis, unspecified (principal); J90 Pleural effusion, not elsewhere classified; Z85.118 Personal history of other malignant neoplasm of bronchus and lung
CPT/HCPCS: 71260

== ENCOUNTER 2021-04-20 09:17 | Outpatient (RCR) | payer BC ==
[2021-04-14 14:02] LABS: BASOPHILS # (AUTO) 0.1 10^3/uL (0.0-0.1); BASOPHILS % (AUTO) 1 % (0-10); EOSINOPHILS # (AUTO) 0.1 10^3/uL (0.0-0.3); EOSINOPHILS % (AUTO) 1 % (0-10); HEMATOCRIT 37 % (35-52); HEMOGLOBIN 12.4 g/dL (11.5-16.0); LYMPHOCYTES # (AUTO) 1.4 10^3/uL (1.0-4.0); LYMPHOCYTES % (AUTO) 21 % (12-44); MEAN CORPUSCULAR HEMOGLOBIN 31 pg (25-34); MEAN CORPUSCULAR HGB CONC 33 g/dL (32-36); MEAN CORPUSCULAR VOLUME 93 fL (80-99); MEAN PLATELET VOLUME 8.1 fL (9.0-12.2); MONOCYTES # (AUTO) 0.6 10^3/uL (0.0-1.0); MONOCYTES % (AUTO) 9 % (0-12); NEUTROPHILS # (AUTO) 4.6 10^3/uL (1.8-7.8); NEUTROPHILS % (AUTO) 67 % (42-75); PLATELET COUNT 326 10^3/uL (130-400); WHITE BLOOD COUNT 6.8 10^3/uL (4.3-11.0)
[2021-04-14 14:48] LABS: ALBUMIN 3.9 GM/DL (3.2-4.5); BILIRUBIN,TOTAL 0.4 MG/DL (0.1-1.0); CALCIUM 9.5 MG/DL (8.5-10.1); CREATININE SERUM 0.7 MG/DL (0.60-1.30); TOTAL PROTEIN 7.6 GM/DL (6.4-8.2)
[~2021-04-20 09:17] MED LIST changes: -HOLD METFORMIN - RECEIVED CONTRAST 20 ML VIAL IV SCH; -IOHEXOL 350 MG/ML 100 ML (OMNIPAQUE 350) VIAL IV ONE; -NS 100 ML (IVPB) BAG IV ONE
== END 2021-07-13 | disposition home or self-care (01) ==
LOC: ONC 09:17
PROVIDERS: ATTEND Internal Medicine Hematology & Oncology
DX: Z45.2 Encounter for adjustment and management of vascular access device (principal)
CPT/HCPCS: 36591; 80053; 84443; 85025; 99213

== ENCOUNTER → 2021-07-28 | Outpatient (CLI) | payer BC ==
[~2021-07-28] MED LIST changes: +HOLD METFORMIN - RECEIVED CONTRAST 20 ML VIAL IV SCH; +IOHEXOL 350 MG/ML 100 ML (OMNIPAQUE 350) VIAL IV ONE; +NS 100 ML (IVPB) BAG IV ONE
--- NOTE | 2021-07-28 13:28 | Diagnostic Imaging Report ---
PROCEDURE: CT chest with contrast only. TECHNIQUE: Multiple contiguous axial images were obtained through the chest after administration of intravenous contrast. Auto Exposure Controls were utilized during the CT exam to meet ALARA standards for radiation dose reduction. DATE: July 28, 2021. COMPARISON: April 14, 2021. INDICATION: 51-year-old female, history of lung cancer. FINDINGS: There are mild linear opacities in the left upper lobe consistent with atelectasis. There is a very large right pleural effusion. There is a non-homogeneously enhancing consolidation in the right hilar region and right upper lobe with areas of nonhomogeneous enhancement having an axial extent of roughly 3.9 x 1.5 cm. This is nonspecific. There are areas of more homogeneous enhancement present in the right middle lobe and right lower lobe which are compatible with areas of atelectasis. There is substantial volume loss of the right lung. There are small foci of air in the main pulmonary artery which may relate to recent venous access. There is no identified pulmonary embolus. The heart is not enlarged. There is no pericardial effusion. There are atherosclerotic calcifications. There is a right superior mediastinal lymph node on axial image 25 which measures 8 mm in short axis. There is no additional identified discrete mediastinal, hilar, or axillary lymph node which is prominent in size. There is an indeterminate right adrenal nodule on axial image 131 measuring 1.2 cm in size. Internal attenuation on postcontrast exam is 59 Hounsfield units. There is no identified aggressive bone lesion. IMPRESSION: CT CHEST. 1. Very large right pleural effusion. 2. Non-homogeneously enhancing consolidation in the right upper lobe and right hilar region which is nonspecific. This is a fairly similar appearance dating back to April 14, 2021. 3. Additional areas of homogeneously enhancing consolidation in the right middle lobe and right lower lobe are consistent with atelectasis. There are substantial volume loss of the right lung. 4. Indeterminate right adrenal nodule measuring 1.3 cm in size which is unchanged since March 2021. Dictated by: Dictated on workstation # [id number]
== END ==
LOC: RAD 11:45
PROVIDERS: ATTEND Internal Medicine Hematology & Oncology
DX: C34.90 Malignant neoplasm of unspecified part of unspecified bronchus or lung (principal); E27.9 Disorder of adrenal gland, unspecified
CPT/HCPCS: 71260

== ENCOUNTER 2021-08-03 12:42 | Outpatient (RCR) | payer BC ==
[2021-07-28 11:45] LABS: BASOPHILS # (AUTO) 0.1 10^3/uL (0.0-0.1); BASOPHILS % (AUTO) 1 % (0-10); EOSINOPHILS # (AUTO) 0.1 10^3/uL (0.0-0.3); EOSINOPHILS % (AUTO) 1 % (0-10); HEMATOCRIT 41 % (35-52); HEMOGLOBIN 13.4 g/dL (11.5-16.0); LYMPHOCYTES # (AUTO) 1.7 10^3/uL (1.0-4.0); LYMPHOCYTES % (AUTO) 21 % (12-44); MEAN CORPUSCULAR HEMOGLOBIN 30 pg (25-34); MEAN CORPUSCULAR HGB CONC 33 g/dL (32-36); MEAN CORPUSCULAR VOLUME 92 fL (80-99); MONOCYTES # (AUTO) 0.7 10^3/uL (0.0-1.0); MONOCYTES % (AUTO) 8 % (0-12); NEUTROPHILS # (AUTO) 5.6 10^3/uL (1.8-7.8); NEUTROPHILS % (AUTO) 68 % (42-75); PLATELET COUNT 399 10^3/uL (130-400); WHITE BLOOD COUNT 8.2 10^3/uL (4.3-11.0)
[2021-07-28 12:03] LABS: BILIRUBIN,TOTAL 0.4 MG/DL (0.1-1.0); CALCIUM 9.6 MG/DL (8.5-10.1); CREATININE SERUM 0.74 MG/DL (0.60-1.30); POTASSIUM 3.7 MMOL/L (3.6-5.0); TOTAL PROTEIN 7.8 GM/DL (6.4-8.2)
[~2021-08-03 12:42] MED LIST changes: -HOLD METFORMIN - RECEIVED CONTRAST 20 ML VIAL IV SCH; -IOHEXOL 350 MG/ML 100 ML (OMNIPAQUE 350) VIAL IV ONE; -NS 100 ML (IVPB) BAG IV ONE
== END 2021-08-15 | disposition home or self-care (01) ==
LOC: ONC 12:42
PROVIDERS: ATTEND Internal Medicine Hematology & Oncology
DX: Z45.2 Encounter for adjustment and management of vascular access device (principal); E03.9 Hypothyroidism, unspecified
CPT/HCPCS: 36591; 80053; 84443; 85025; 99213

== ENCOUNTER → 2021-08-24 | Outpatient (CLI) | payer BC ==
--- NOTE | 2021-08-24 12:16 | Progress Note-Pre Operative ---
Pre-Operative Progress Note H&P Reviewed The H&P was reviewed, patient examined and no changes noted. Time Seen by Provider: 11:57 Date H&P Reviewed: Aug 24, 2021 Time H&P Reviewed: 11:57 Pre-Operative Diagnosis: pleural fluid MATTI HUFF DO Aug 24, 2021 12:16
--- NOTE | 2021-08-24 12:21 | Progress Note-Post Operative ---
Post-Operative Progess Note Surgeon (s)/Collision Worker (s) Surgeon MATTI HUFF DO Collision Worker: none Pre-Operative Diagnosis pleural fluid Post-Operative Diagnosis same pending pathology Procedure & Operative Findings Date of Procedure 08/24/21 Procedure Performed/Findings Thoracentesis with US After informed consent was obtained, the patient was in the Pre-op room, timeout was performed and then the patient was sterilely prepped and draped in normal fashion. She had already been previously marked by the ultrasound (done by myself) and then I infiltrated the skin with local; next I made a small stab incision with #11 blade and then advanced the safe-T needle at the spot that ultrasound had marked. Gently into the pleural cavity, able to push through and then got a good flash of a yellowish/whitish fluid and then pushed the catheter in and pulled the needle out. Catheter went in easily and then hooked this up to vacutainer and got out yellow/white milky fluid. No bleeding as the needle was inserted and then it drained approximately 1500ml of pleural fluid. Removed the catheter once it was done draining and the area was cleaned and dried and bandaged. Sponge, instrument and needle count correct at the end of the case. Anesthesia Type local lidocaine Estimated Blood Loss Estimated blood loss (mL): scant Specimens/Packing Specimens Removed pleural fluid, sent for cytology and cell count MATTI HUFF DO Aug 24, 2021 12:21
--- NOTE | 2021-08-24 12:24 | Discharge Inst-Surgical ---
Discharge Inst-Surgical Depart Medication/Instructions New, Converted or Re-Newed RX: Other (use home meds) Patient Instructions Follow up Appt: Make appointment for 1 week. [phone] Instructions: May shower in 24 hours, no tub bath or soaking. Use incentive spirometer at home as directed. No Smoking Skin/Wound Care: May remove bandages in am. You need to leave the Dermabond on incision it will fall off on it's own. Symptoms to Report: Appetite Changes, Extremity Discoloration, Numbness/Tingling, Swelling Increased, Bleeding Excessive, Eyesight Changes, Pain Increased, Urine Color Change, Constipation(Persistent), Fever over 101 degree F, Pain/Pressure in chest, Urinating Difficulty, Cough Up/Vomit Blood, Heart Beat Irreg/Pounding, P ain/Pressure in jaw, Cramps in feet or legs, Lightheadedness, Pain/Pressure in shoulder, Diarrhea(Persistent), Memory Changes Suddenly, Questions/Concerns, Weight gain consecutive days, Dizziness/Fainting, Nausea/Vomiting, Shortness of Breath, Weight gain over 2 pounds If questions or concerns contact your physician Or seek help at emergency department. Activity Activity as Tolerated: Yes Driving Instructions: No Driving/Refer to Dr. Saleem Discharge Diet: No Restrictions Diet After 24 Hours: Clear Liquid if Nauseous If Any Problems/Questions/Issu: Contact Your Physician, Go to Emergency Room Skin/Wound Care Infection Signs and Symptoms: Increased Redness, Foul Odor of Wound, Increased Drainage, Skin Itchy or Has a Rash, Increased Swelling, Temperature Above 101 F Stitches/[place]/Dermabond Dis: MATTI Ordaz DO Aug 24, 2021 12:24
--- NOTE | 2021-08-24 12:50 | Diagnostic Imaging Report ---
CHEST 1 VIEW, AP/PA ONLY. INDICATION: Status post thoracentesis. COMPARISON: 12/23/2020. FINDINGS: Stable right subclavian Port-A-Cath. Right basilar linear opacities are present. No pneumothorax. Stable cardiomediastinal silhouette. IMPRESSION: 1. Right basilar linear opacities are likely due to atelectasis. 2. No pneumothorax. Dictated by: Dictated on workstation # [id number]
[2021-08-24 13:10] VITALS: BP 137/74
[2021-08-24 14:01] LABS: AMYLASE,BODY FLUID 59 U/L; GLUCOSE,BODY FLUID 113 MG/DL; LDH,BODY FLUID 122 U/L; TOTAL PROTEIN,BODY FLUID 7.3 G/DL
[2021-08-24 14:19] LABS: BODY FLUID APPEARENCE MKD CLDY; BODY FLUID COLOR PALE YELLOW; BODY FLUID SOURCE PLEURAL
[2021-08-24 14:20] LABS: BODY FLUID RBC COUNT 281 /uL; BODY FLUID WBC TOTAL COUNT 322 /uL
[2021-08-24 14:37] LABS: BF OTHER CELLS 67 %; LYMPHOCYTES,BODY FLUID 29 %
== END ==
LOC: SDC 10:53
PROVIDERS: ATTEND Surgery
DX: J98.11 Atelectasis (principal); J90 Pleural effusion, not elsewhere classified; R91.8 Other nonspecific abnormal finding of lung field; Z98.890 Other specified postprocedural states
CPT/HCPCS: 32554; 71045; 82150; 82570; 82945; 83615; 84157; 87070; 87075; 87205; 89051